=== PATIENT | female | born 1945 | race Caucasian/White ===

== ENCOUNTER 2024-11-07 17:11 | Inpatient (IN) | payer MEDICARE, SELFPAY ==
[2024-11-07] VITALS (25 sets, daily range): BP systolic 117–146; BP diastolic 60–98; PULSE 72–88; RESP 10–33; TEMP 36.4; O2SAT 87–100
--- NOTE | ~2024-11-07 | CT_ITS ---
History: Altered mental status with dizziness PROCEDURE: CT head without contrast. COMPARISON: None TECHNIQUE: Axial imaging of the head performed from the skull base to the vertex without IV contrast. Sagittal a nd coronal reformations obtained. DLP: 605 mGy-cm FINDINGS: The ventricles are age-appropriate in size, shape and position. There is no mass, mass effect or midline shift. There is no abnormal extra-axial fluid collection or intracranial hemorrhage. Visualized paranasal sinuses are clear. Partial opacification of the posterior most bilateral mastoid air cells with air-fluid level is ident ified. The remaining portions of the mastoid air cells are well aerated. No acute displaced fractures within the overlying cranium. Impression: No acute intracranial hemorrhage or suspicious mass effect. Partial opacification of the posterior most bilateral mastoid air cells with air-fluid levels. Reviewed, dictated and finalized at location A. R DRAGLINE OPERATOR Impression: No acute intracranial hemorrhage or suspicious mass effect. Partial opacification of the posterior most bilateral mastoid air cells with ai r-fluid levels.
--- NOTE | ~2024-11-07 | MR_ITS ---
EXAMINATION: MR brain/brain stem wo/w con DATE: 11/09/2024 11:28 INDICATION: Dizziness. TECHNIQUE: Magnetic resonance imaging (MRI) of the brain and brainstem was performed without and with 14 mL MultiHance intravenous contrast. COMPARISON: Head CT 11/07/2024 FINDINGS: There is an acute infarct involving left insula. There are scattered areas of nonspecific i ncreased T2-weighted signal intensity in the cerebral white matter, which is within normal limits for the patient's age. There is no intracranial hemorrhage or abnormal mass lesion. The ventricles are n ormal in size. There is mild mucosal thickening in the paranasal sinuses. IMPRESSION: 1. 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 Reviewed, dictated and finalized at location A. PROTECTOR
--- NOTE | ~2024-11-07 | XR_ITS ---
EXAMINATION: XR chest 1V portable DATE: 11/09/2024 06:15 INDICATION: Fever. TECHNIQUE: A single frontal view of the chest was obtained. COMPARISON: Chest single view 11/07/2024 FINDINGS: There is mild atelectasis at left lung base. No pleural effusion or pneumothorax. The heart size is normal. IMPRESSION: 1. Mild atelectasis at left lung base. Reviewed, dictated and finalized at location A. PATIONAL HEALTH TECHNICIAN
--- NOTE | ~2024-11-07 | XR_ITS ---
EXAMINATION: XR chest 1V portable DATE: 11/12/2024 08:41 INDICATION: Atrial fibrillation with rapid ventricular response TECHNIQUE: frontal view of the chest was obtained. COMPARISON: Chest radiograph dated 11/09/2024 FINDINGS: Mild right apical pleural-parenchymal scarring. No other airspace opacities, pulmonary edema, pleural effusion or pneumothorax. The cardiomediastinal silhouette is within normal limits isabel hernandez. IMPRESSION: 1. No acute cardiopulmonary disease. Reviewed, dictated and finalized at location A. L TENDER
--- NOTE | ~2024-11-07 | US_ITS ---
EXAMINATION: US carotid duplex BI DATE: 11/10/2024 09:16 INDICATION: Stroke TECHNIQUE: Grayscale, color Doppler, and pulsed Doppler images of the cervical carotid arteries were obtained. The degree of vessel stenosis is placed in one of the following categories: normal, <50%, 5 0-69%, >=70% but less than near-occlusion, near-occlusion, or total occlusion. Note that percent sten osis relative to normal distal artery lumen diameter is indirectly measured from velocity measurement s as described by Alvino, et al. Radiology 2003; [id number]. COMPARISON: None. FINDINGS: RIGHT: The right common carotid artery (CCA) peak systolic velocity (PSV) is 100 cm/s. The right internal ca rotid artery (ICA) PSV is 100 cm/s. The right ICA end-diastolic velocity (EDV) is 21 cm/s. The right ICA/CCA PSV ratio is 1.0. Grayscale and color Doppler images yield an estimate of <50% diameter reduc tion from plaque in the ICA. The external carotid artery (ECA) PSV is 123 cm/s. There is antegrade fl ow in the right vertebral artery. LEFT: The left CCA PSV is 118 cm/s. The left ICA PSV is 136 cm/s. The left ICA EDV is 36 cm/s. The left ICA /CCA PSV ratio is 1.2. Grayscale and color Doppler images including secondary Doppler criteria yield an estimate of <50% diameter reduction from plaque in the ICA. The ECA PSV is 97 cm/s. There is anteg rade flow in the left vertebral artery. IMPRESSION: 1. <50% stenosis from minimal plaque in the right internal carotid artery. 2. <50% stenosis from minimal plaque in the left internal carotid artery. Reviewed, dictated and finalized at location B. SCRIPT READER
--- NOTE | ~2024-11-07 | CT_ITS ---
CTA brain carotid Ordering provider: Janet Hanks MD History: . stroke . Comparison: CT done on November 07, 2024 Technique: CT angiogram head and neck was performed following timed intravenous injection of contrast . Thin slice axial images and reformatted coronal images were obtained. Three dimensional reformatted images of the brain were also obtained using a [employer] workstation. Radiation reduction technique ut ilized.The dose-length product was 1672.08 mGy-cm. 100 mL Omnipaque 350 was given IV. FINDINGS: HEAD: --ANTERIOR AND MIDDLE CEREBRAL ARTERIES AND BRANCHES: Normal caliber and contour. --INTERNAL CAROTID ARTERIES: Mild atheromatous disease but no significant stenosis. No occlusion. --BASILAR ARTERY AND BRANCHES: Normal caliber and contour. No atheromatous disease. --POSTERIOR CEREBRAL ARTERIES: Normal caliber and contour --POSTERIOR COMMUNICATING ARTERIES: Not visualized which is probably related to congenital absence or small size. --ANEURYSM: None visualized. --BRAIN: Mild brain atrophy. Old lacunar infarct in the right basal ganglia. --BONES AND SUPERFICIAL SOFT TISSUES: Normal. --PARANASAL SINUSES AND MASTOIDS: Normal. NECK: --RIGHT CERVICAL CAROTID SYSTEM: Normal caliber and contour. Percent stenosis per NASCET criteria is 0%. No carotid dissection. Otherwise, no significant atheromatous disease or stenosis of the cervica l carotid system. --LEFT CERVICAL CAROTID SYSTEM: Normal caliber and contour. Percent stenosis per NASCET criteria is 0%. No carotid dissection. Otherwise, no significant atheromatous disease or stenosis of the cervical carotid system. --VERTEBRAL ARTERIES: Normal caliber and contour. --VISUALIZED AORTIC ARCH AND BRANCHING VESSELS: Mild atheromatous disease but no significant stenosis . --SOFT TISSUES: Normal. Fibrotic changes of the lungs with minimal effusion and adjacent atelectasis seen posteriorly. --CERVICAL SPINE: Age appropriate degenerative changes. IMPRESSION: 1. Normal CTA neck. Percent stenosis per NASCET criteria is 0%. 2. No intracranial occlusion or significant stenosis seen. Reviewed, dictated and finalized at location A. LER RUNNER
--- NOTE | ~2024-11-07 | XR_ITS ---
CHEST RADIOGRAPH CLINICAL HISTORY: AMS . COMPARISON: None available TECHNIQUE: Single portable view of the chest. FINDINGS The cardiomediastinal silhouette is unremarkable. The lungs are clear. Visualized osseous structures and soft tissues are unremarkable. IMPRESSION: No focal infiltrate or effusion. Reviewed, dictated and finalized at location A. TURNER
[2024-11-07 17:22] LABS: Glucose Point of Care 65 mg/dl (65-105)
--- NOTE | 2024-11-07 18:01 | ECG_ITS ---
Test Date: 2024-11-07 21:26:26 Measurements Intervals [place] Rate: 77 P: 143 MD: 175 QRS: 19 QRSD: 89 T: 69 QT: 378 QTc: 429 Interpretive Statements SINUS RHYTHM POSSIBLE LEFT ATRIAL ENLARGEMENT [-0.1mV P-WAVE IN V1/V2] LOW QRS VOLTAGE [QRS DEFLECTION < 0.5/1.0 mV IN LIMB/CHEST LEADS] No previous ECG available for comparison Electronically Signed On 11-08-2024 13:46:48 LAYOUT MAN by Rajat Chino M.D.
--- NOTE | 2024-11-07 18:03 | ED_ITS ---
HPI - Altered Mental Status General Chief Complaint: Altered Mental Status Stated Complaint: AMS Time Seen by Provider: 11/07/24 17:37 History of Present Illness HPI narrative: 79 y/o F with a PMHx of HTN, recent dx of right breast cancer emergency department with family at bedside for altered mental status. Patient's family at bedside assists with history. States the patient drove from her house to family's house in normal condition. States while she was there she was making a salad and converse eating with family members. While in the middle the conversation the patient became acutely confused. States she would not answer questions and would stare off, then come 2 but remained confused. This lasted intermittently for about 15 minutes. Patient is normally A&O x4 but since this occurred around 4:10 p.m. the patient has not return to her baseline mental status. The patient states earlier in the day she had some lightheadedness but otherwise has been in her normal state of health. The patient states she remembers having a hot flash, nausea and felt ?tingling all over my body?. She believe she does not recall the entire event. She denies history of seizures, CVA, cardiac disease. She denies vision changes, focal numbness or weakness, headache, chest pain or shortness of breath, cough or congestion, abdominal pain, diarrhea vomiting, dysuria or hematuria. She states currently she does feels nauseous and somewhat confused. Related Data Allergies Allergy/AdvReac Type Severity Reaction Status Date / Time Penicillins Allergy Intermediate Rash Verified 11/07/24 19:32 Review of Systems 2 Review of Systems: All systems reviewed & are unremarkable except as noted in HPI and below Exam 2 Narrative: GENERAL: Well-appearing, well-nourished, and in no acute distress. HEAD: Normocephalic, atraumatic. EYES: PERRLA and EOMI. ENT: Nares clear, no rhinorrhea or epistaxis. Mucous membranes moist. Bilateral TMs are not visualized due to cerumen. Normal canals otherwise. No pain over mastoids bilaterally NECK: Supple. CHEST: Clear to auscultation. No respiratory distress. HEART: Regular rate and rhythm. No murmur heard. Normal peripheral pulses. ABDOMEN: Soft, nontender, nondistended, normal active bowel sounds. EXTREMITIES: Normal range of motion. No edema. SKIN: Warm, dry, no rash. NEURO: No focal deficits. Alert and oriented x3 - Answers all questions appropriately but states the years 2025. Cranial nerves 2-12 intact. Strength 5/5 in BUE and BLE. Sensation intact throughout. Normal [id number]. No pronator drift Course Vital Signs Vital signs: Vital Signs Temperature 97.6 F 11/07/24 17:17 Pulse Rate 81 11/07/24 17:17 Respiratory Rate 13 11/07/24 17:17 Blood Pressure 146/71 H 11/07/24 17:17 Pulse Oximetry 98 11/07/24 17:17 Temperature 97.6 F 11/07/24 17:17 Pulse Rate 78 11/07/24 22:54 Respiratory Rate 21 H 11/07/24 22:33 Blood Pressure 136/65 11/07/24 22:54 Pulse Oximetry 100 11/07/24 22:33 Oxygen Delivery Room Air 11/07/24 17:56 MDM - Altered Mental Status MDM Narrative Medical decision making narrative: 79-year-old female presents emergency department family at bedside for altered mental status since 4:10 p.m. today. See HPI for further history. Vitals are stable. Patient is A&O x3 on my evaluation, normally A&O x4 baseline. Does not follow up on exam. Normally complaints currently are confusion and nausea. She is resting comfortably in exam bed. Workup shows no leukocytosis or anemia. Chemistries are remarkable for hyponatremia of 121, no prior for comparison. May be secondary to diuretic use. TSH within normal limits. UA without infection. Lactic normal at 0.7. CT brain shows no acute intracranial hemorrhage or suspicious mass effect. There is partial opacification of the posterior most bilateral mastoid air cells with air-fluid levels. Patient has no otalgia, no pain over mastoids on exam. Chest x-ray shows no focal infiltrate or effusion. EKG shows sinus rhythm with rate of 778 ppm, normal AR interval, normal QRS duration, normal QTC, no ischemic changes. Troponin is undetectable. I was notified by nursing staff the patient was unable to ambulate on her own to go to the restroom did to lightheadedness. Orthostatic vital signs were obtained which do not show orthostatic hypotension but the patient did have lightheadedness when going from a supine to sitting position and sitting to standing position. Discussed the case with hospitalist, Dr. Queen, who agrees to admission. Advises echocardiogram and MRI of the brain in the morning. Patient family are agreeable with this. Lab Data 11/07/24 18:15 11/07/24 18:15 Labs: Lab Results 11/07/24 11/07/24 11/07/24 Range/Units 17:20 18:15 18:47 WBC 6.2 (4.5-10.0) K/mm3 RBC 3.94 L (4.2-5.4) M/mm3 Hgb 12.6 (12.0-15.0) g/dL Hct 35.4 L (37.0-47.0) % MCV 89.8 (80-100) fl MCH 32.0 (26-34) pg MCHC 35.6 (32-36) g/dl RDW 11.9 (11.5-14.5) % Plt Count 265 (150-375) k/mm3 MPV 8.7 (7.4-10.4) fl Immature Gran % (Auto) 0.8 H (0-0.5) % Neut % (Auto) 71.7 (45.5-73.1) % Lymph % (Auto) 14.5 L (18.3-44.2) % [place] % (Auto) 10.1 H (2.6-8.5) % Eos % (Auto) 1.9 (0-4.4) % Baso % (Auto) 1.0 (0.2-1.2) % Lymph # (Auto) 0.90 (0.9-3.2) K/mm3 [place] # (Auto) 0.6 (0.1-0.6) K/mm3 Eos # (Auto) 0.1 (0-0.3) K/mm3 Baso # (Auto) 0.1 (0.0-0.1) K/mm3 Abs Immat Gran (auto) 0.05 H (0.00-0.031) K/mm3 Absolute Neuts (auto) 4.5 (1.3-6.7) K/mm3 Absolute Nucleated RBC 0.000 (0.0-0.012) K/mm3 Nucleated RBC % 0.0 (0.0-0.2) % PT 13.5 (11.1-14.7) Seconds INR 1.0 APTT 27.8 (22.3-36.8) Seconds Sodium 121 L (137-145) mmol/L Potassium 3.6 (3.4-5.0) mmol/L Chloride 87 L (98-107) mmol/L Carbon Dioxide 28 (22-30) mmol/L Anion Gap 6 (4-12) mmol/L BUN 14 (7-17) mg/dL Creatinine 0.60 L (0.7-1.0) mg/dL Estim Creat Clear Calc 64 ml/min Estimated GFR > 60 (59 - ) Glucose 90 (65-110) mg/dL POC Capillary Glucose 65 (65-105) mg/dl Lactic Acid 0.7 (0.7-2.0) mmol/L Calcium 9.3 (8.4-10.2) mg/dL Total Bilirubin 0.9 (0.2-1.3) mg/dL AST 33 (14-36) U/L ALT 25 (6-35) U/L Alkaline Phosphatase 59 (38-126) U/L Total Creatine Kinase 33 (30-135) U/L Troponin I < 0.012 (0.000-0.034) ng/mL Total Protein 7.0 (6.3-8.2) g/dL Albumin 4.7 (3.5-5.1) g/dL TSH 1.620 (0.465-4.680) uIU/mL Urine Color Yellow (Yellow) Urine Appearance Clear (Clear) Urine pH 6.5 (5.0-9.0) Ur Specific [place] 1.016 (1.001-1.035) Urine Protein Negative (Negative) mg/dL Urine Glucose (UA) Negative (Negative) mg/dL Urine Ketones 1+ H (Negative) mg/dL Ur Blood (Man) Negative (Negative) Urine Nitrate Negative (Negative) Urine Bilirubin Negative (Negative) Urine Urobilinogen 0.2 (<2.0) mg/dL Leukocyte Esterase Rfl Negative (Negative) TATUM/UL 11/07/24 Range/Units 23:16 WBC (4.5-10.0) K/mm3 RBC (4.2-5.4) M/mm3 Hgb (12.0-15.0) g/dL Hct (37.0-47.0) % MCV (80-100) fl MCH (26-34) pg MCHC (32-36) g/dl RDW (11.5-14.5) % Plt Count (150-375) k/mm3 MPV (7.4-10.4) fl Immature Gran % (Auto) (0-0.5) % Neut % (Auto) (45.5-73.1) % Lymph % (Auto) (18.3-44.2) % [place] % (Auto) (2.6-8.5) % Eos % (Auto) (0-4.4) % Baso % (Auto) (0.2-1.2) % Lymph # (Auto) (0.9-3.2) K/mm3 [place] # (Auto) (0.1-0.6) K/mm3 Eos # (Auto) (0-0.3) K/mm3 Baso # (Auto) (0.0-0.1) K/mm3 Abs Immat Gran (auto) (0.00-0.031) K/mm3 Absolute Neuts (auto) (1.3-6.7) K/mm3 Absolute Nucleated RBC (0.0-0.012) K/mm3 Nucleated RBC % (0.0-0.2) % PT (11.1-14.7) Seconds INR APTT (22.3-36.8) Seconds Sodium (137-145) mmol/L Potassium (3.4-5.0) mmol/L Chloride (98-107) mmol/L Carbon Dioxide (22-30) mmol/L Anion Gap (4-12) mmol/L BUN (7-17) mg/dL Creatinine (0.7-1.0) mg/dL Estim Creat Clear Calc ml/min Estimated GFR (59 - ) Glucose (65-110) mg/dL POC Capillary Glucose 66 (65-105) mg/dl Lactic Acid (0.7-2.0) mmol/L Calcium (8.4-10.2) mg/dL Total Bilirubin (0.2-1.3) mg/dL AST (14-36) U/L ALT (6-35) U/L Alkaline Phosphatase (38-126) U/L Total Creatine Kinase (30-135) U/L Troponin I (0.000-0.034) ng/mL Total Protein (6.3-8.2) g/dL Albumin (3.5-5.1) g/dL TSH (0.465-4.680) uIU/mL Urine Color (Yellow) Urine Appearance (Clear) Urine pH (5.0-9.0) Ur Specific [place] (1.001-1.035) Urine Protein (Negative) mg/dL Urine Glucose (UA) (Negative) mg/dL Urine Ketones (Negative) mg/dL Ur Blood (Man) (Negative) Urine Nitrate (Negative) Urine Bilirubin (Negative) Urine Urobilinogen (<2.0) mg/dL Leukocyte Esterase Rfl (Negative) TATUM/UL Discharge Plan Discharge Clinical Impression: Lightheadedness, Hyponatremia Patient Disposition: Still a Patient Condition: Stable Patient Language: [place] Follow-up/Referrals: Karishma Regan [Other]
[2024-11-07 18:23] LABS: Basophils Absolute Auto 0.1 K/mm3 (0.0-0.1); Eosinophils Absolute Auto 0.1 K/mm3 (0-0.3); Eosinophils Percent Auto 1.9 % (0-4.4); Hematocrit 35.4 % (37.0-47.0); Hemoglobin 12.6 g/dL (12.0-15.0); Immature Granulocyte Absolute 0.05 K/mm3 (0.00-0.031); Immature Granulocyte Percent A 0.8 % (0-0.5); Lymphocytes Percent Auto 14.5 % (18.3-44.2); Mean Corpuscular HGB Conc 35.6 g/dl (32-36); Mean Corpuscular Volume 89.8 fl (80-100); Mean Platelet Volume 8.7 fl (7.4-10.4); Monocytes Absolute Auto 0.6 K/mm3 (0.1-0.6); Monocytes Percent Auto 10.1 % (2.6-8.5); Neutrophils Absolute Auto 4.5 K/mm3 (1.3-6.7); Neutrophils Percent Auto 71.7 % (45.5-73.1); Platelet Count Result 265 k/mm3 (150-375); Red Blood Count 3.94 M/mm3 (4.2-5.4); Red Cell Distribution Width 11.9 % (11.5-14.5); White Blood Count 6.2 K/mm3 (4.5-10.0)
[2024-11-07 18:34] LABS: Alanine Aminotransferase 25 U/L (6-35); Albumin Level 4.7 g/dL (3.5-5.1); Alkaline Phosphatase 59 U/L (38-126); Anion Gap 6 mmol/L (4-12); Aspartate Amino Transferase 33 U/L (14-36); Bilirubin,Total 0.9 mg/dL (0.2-1.3); Blood Urea Nitrogen 14 mg/dL (7-17); Calcium 9.3 mg/dL (8.4-10.2); Carbon Dioxide 28 mmol/L (22-30); Chloride 87 mmol/L (98-107); Creatine Kinase 33 U/L (30-135); Estimated CRCL calculation 64 ml/min; Estimated Glomerular Filt Rate > 60; Glucose 90 mg/dL (65-110); Lactic Acid Reflex 0.7 mmol/L (0.7-2.0); Potassium 3.6 mmol/L (3.4-5.0); Sodium 121 mmol/L (137-145)
[2024-11-07 18:35] LABS: Partial Thromboplastin Time 27.8 Seconds (22.3-36.8); Prothrombin Time 13.5 Seconds (11.1-14.7)
[2024-11-07 18:45] LABS: Troponin I < 0.012 ng/mL (0.000-0.034)
[2024-11-07] MEDS: ACETAMINOPHEN 325 MG TABLET 650 MG PO (19:31)
[2024-11-07 19:47] LABS: Add Urine Microscopic? NO; Appearance Urine Clear (Clear); Bilirubin Urine Negative (Negative); Blood Urine Negative (Negative); Color Urine Yellow (Yellow); Glucose Urine UA Negative (Negative); Ketones Urine 1+ mg/dL (Negative); Leukocyte Esterase Ur Negative LEU/UL (Negative); Nitrate Urine Negative (Negative); Protein Urine Negative (Negative); Specific Grav Ur 1.016 (1.001-1.035); Urobilinogen Urine 0.2 mg/dL (<2.0); pH Urine 6.5 (5.0-9.0)
[2024-11-07] MEDS: SODIUM CHLORIDE 0.9% IV 1,000 ML 999 ML IV CONT ×2 (20:15→23:34)
[2024-11-07] MEDS: METOCLOPRAMIDE HCL INJ 10 MG/2 ML VIAL IV PUSH (23:01)
[2024-11-07] MEDS: diphenhydrAMINE HCl INJ 50 MG/ML VIAL 25 MG IV PUSH (23:01)
[2024-11-07 23:19] LABS: Glucose Point of Care 66 mg/dl (65-105)
--- NOTE | 2024-11-07 23:23 | PM.IMHP ---
H&P: HPI History of Present Illness Date/Time: 11/07/24 23:23 Chief Complaint: Altered mental status Narrative: This is a 79-year-old female with past medical history significant for hypertension, recently diagnosed breast CA, hypothyroidism, depression. Patient was brought to the emergency room after having episode of altered consciousness with the patient became unresponsive and was noticed to have lip smacking and bilateral upper extremity nonpurposeful finger movement. Patient did not have incontinence, was recently diagnosed with breast CA and had been on estrogen replacement therapy which was stopped has had hot flashes with profuse sweating and insomnia for several days. Patient was found to be mildly orthostatic and felt dizzy upon standing. Preliminary workup was significant for sodium [address] of the head showed no acute hemorrhage. Patient has been placed in observation for further evaluation management and treatment CHEST RADIOGRAPH CLINICAL HISTORY: AMS . COMPARISON: None available TECHNIQUE: Single portable view of the chest. FINDINGS The cardiomediastinal silhouette is unremarkable. The lungs are clear. Visualized osseous structures and soft tissues are unremarkable. IMPRESSION: No focal infiltrate or effusion. PROCEDURE: CT head without contrast. COMPARISON: None TECHNIQUE: Axial imaging of the head performed from the skull base to the vertex without IV contrast. Sagittal and coronal reformations obtained. DLP: 605 mGy-cm FINDINGS: The ventricles are age-appropriate in size, shape and position. There is no mass, mass effect or midline shift. There is no abnormal extra-axial fluid collection or intracranial hemorrhage. Visualized paranasal sinuses are clear. Partial opacification of the posterior most bilateral mastoid air cells with air-fluid level is identified. The remaining portions of the mastoid air cells are well aerated. No acute displaced fractures within the overlying cranium. Impression: No acute intracranial hemorrhage or suspicious mass effect. Partial opacification of the posterior most bilateral mastoid air cells with air-fluid levels. Review of Systems Review of Systems: Patient has no recollection of events however states that has a headache, has been having hot flashes and profuse diaphoresis, has not been able to sleep in several days [facility] Social History Social History Smoking status: Never smoker Second hand tobacco smoke exposure: No Alcohol intake: current Drinks per week: 7 Substance use: never Do You Feel Safe in your Home?: Yes Lack of Transportation: No Lack of Food: Never True Current Housing: I Have Housing Concerned About Future Housing: No Difficulty Paying Gas/Electric Bills: No Difficulty Paying for Meds: No Currently Unemployed: No Education: High School Diploma/GED Difficulty w/ Childcare or Family Care: No Spiritual care concerns: No Meds Home Medications and Allergies Home Medications ?Medication ?Instructions ?Recorded ?Confirmed ?Type levothyroxine 100 mcg tablet 100 mcg PO DAILY 11/08/24 11/08/24 History metoprolol succinate 50 mg 50 mg PO DAILY 11/08/24 11/08/24 History tablet,extended release 24 hr olmesartan 5 mg tablet 5 mg PO DAILY 11/08/24 11/08/24 History triamterene 37.5 1 cap PO DAILY 11/08/24 11/08/24 History mg-hydrochlorothiazide 25 mg capsule venlafaxine 37.5 mg 37.5 mg PO DAILY 11/08/24 11/08/24 History capsule,extended release 24 hr vitamin E 268 mg (400 unit) capsule 268 mg PO DAILY 11/08/24 11/08/24 History Allergies Allergy/AdvReac Type Severity Reaction Status Date / Time Penicillins Allergy Intermediate Rash Verified 11/07/24 19:32 Vital Signs Vital Signs - 24 hr 11/07/24 17:17 11/07/24 17:24 11/07/24 17:30 Temperature 97.6 F Pulse Rate 81 83 81 Respiratory Rate 13 16 28 H Blood Pressure 146/71 H Pulse Oximetry 98 98 100 Oxygen Delivery 11/07/24 17:32 11/07/24 17:45 11/07/24 17:56 Temperature Pulse Rate 82 79 Respiratory Rate 19 16 Blood Pressure 144/67 H Pulse Oximetry 97 87 L Oxygen Delivery Room Air 11/07/24 19:46 11/07/24 19:47 11/07/24 20:00 Temperature Pulse Rate 80 80 77 Respiratory Rate 10 L 12 17 Blood Pressure 133/65 Pulse Oximetry 100 100 99 Oxygen Delivery 11/07/24 20:01 11/07/24 20:15 11/07/24 20:16 Temperature Pulse Rate 79 77 79 Respiratory Rate 19 19 16 Blood Pressure 137/62 117/98 H Pulse Oximetry 99 95 98 Oxygen Delivery 11/07/24 20:35 11/07/24 20:45 12/24/24 21:00 Temperature Pulse Rate 82 78 79 Respiratory Rate 24 H 26 H 22 H Blood Pressure Pulse Oximetry Oxygen Delivery 11/07/24 21:01 11/07/24 21:28 11/07/24 21:30 Temperature Pulse Rate 78 72 75 Respiratory Rate 17 18 33 H Blood Pressure 124/73 Pulse Oximetry Oxygen Delivery 11/07/24 21:31 11/07/24 21:32 11/07/24 21:45 Temperature Pulse Rate 74 72 73 Respiratory Rate 21 H 17 30 H Blood Pressure 146/64 H Pulse Oximetry Oxygen Delivery 11/07/24 21:46 11/07/24 22:33 11/07/24 22:52 Temperature Pulse Rate 77 78 87 Respiratory Rate 21 H 21 H Blood Pressure 141/60 H 125/70 Pulse Oximetry 100 Oxygen Delivery 11/07/24 22:53 11/07/24 22:54 Temperature Pulse Rate 88 78 Respiratory Rate Blood Pressure 127/69 136/65 Pulse Oximetry Oxygen Delivery Exam Narrative: Patient laying in a stretcher Const: General: comfortable, no acute distress, well developed, alert, awake and average body habitus Nutritional Appearance: average body habitus Orientation/consciousness: patient oriented x3 HENMT: Head: normal to inspection, normocephalic and atraumatic Ears: hearing grossly normal bilaterally Face/Nose/Sinus: normal facial exam Face and sinus: normal facial exam Eyes: General: appearance normal, both eyes and all related structures Pupils: Equal, round and reactive pupils present EOM: EOMs intact bilaterally Neck: Neck: full ROM, no lymphadenopathy and no JVD Thyroid: thyroid normal Lymphatic: no lymphadenopathy noted Resp: Effort & Inspection: normal respiratory effort and able to speak in complete sentences Auscultation: clear to auscultation bilaterally Cardio: Jugular venous distension: no JVD Rate: regular rate Rhythm: regular rhythm Heart sounds: S1 normal heart sound present and S2 normal heart sound present GI: GI Palp: Yes Soft to palpation and Yes No hepatosplenomegaly present : General: Yes deferred Skin: Rashes: no rashes Wounds: no wounds Neuro: General: patient oriented x3 and CN's II-XI intact bilaterally Cranial nerves: Yes CN's II-XII intact bilaterally and Yes Equal, round and reactive pupils present Cognition (Neuro): normal cognition Speech: normal speech Gait exam (Neuro): Unable to assess gait Motor exam (neuro): 5/5 motor strength present throughout Extrem: General: normal to inspection, full ROM, no joint enlargement and no pedal edema H&P: Results Labs Labs: Short CBC 11/07/24 Range/Units 18:15 WBC 6.2 (4.5-10.0) K/mm3 Hgb 12.6 (12.0-15.0) g/dL Hct 35.4 L (37.0-47.0) % Plt Count 265 (150-375) k/mm3 BMP 11/07/24 18:15 Sodium 121 L Potassium 3.6 Chloride 87 L Carbon Dioxide 28 BUN 14 Creatinine 0.60 L Glucose 90 Calcium 9.3 Cardiac Enzymes 11/07/24 Range/Units 18:15 Total Creatine Kinase 33 (30-135) U/L Troponin I < 0.012 (0.000-0.034) ng/mL Liver Function 11/07/24 Range/Units 18:15 Total Bilirubin 0.9 (0.2-1.3) mg/dL AST 33 (14-36) U/L ALT 25 (6-35) U/L Alkaline Phosphatase 59 (38-126) U/L Albumin 4.7 (3.5-5.1) g/dL Urine 11/07/24 Range/Units 18:47 Urine Color Yellow (Yellow) Urine Appearance Clear (Clear) Urine pH 6.5 (5.0-9.0) Ur Specific [place] 1.016 (1.001-1.035) Urine Protein Negative (Negative) mg/dL Urine Glucose (UA) Negative (Negative) mg/dL Assessment and Plan Assessment and plan (1) Postural dizziness with near syncope: Code(s): R42 - Dizziness and giddiness; R55 - Syncope and collapse Status: Acute Assessment and Plan: Placed in observation MRI of the brain in the morning Echocardiogram in a.m. (2) Observed seizure-like activity: Code(s): R56.9 - Unspecified convulsions Status: Acute Assessment and Plan: Neurology consult (3) Hyponatremia: Code(s): E87.1 - Hypo-osmolality and hyponatremia Status: Acute Assessment and Plan: Will hold diuretics Patient takes triamterene and hydrochlorothiazide (4) Breast CA: Code(s): C50.919 - Malignant neoplasm of unspecified site of unspecified female breast Status: Acute Assessment and Plan: Follow-up in outpatient setting Hospitalist YAW Advance Care Plan I have confirmed that the patient's Advanced Care Plan is present, code status is documented, or surrogate decision maker is listed in patient medical record.: Yes Medication Reconciliation I have utilized all available resources to obtain, update and review the patients current medications (includes all prescriptions, OTC, herbals, cannabis, and nutritional supplements).: Yes
[2024-11-07 23:48] LABS: Sodium Urine Random 134 meq/L
[2024-11-07 23:50] LABS: NT Pro B Type Natriuretic Pept 130 pg/mL (19.9-100)
[2024-11-08] VITALS (11 sets, daily range): BP systolic 107–139; BP diastolic 45–83; PULSE 74–108; RESP 18; TEMP 36.2–37.9; O2SAT 97–100; BMI 25.6
--- NOTE | 2024-11-08 00:33 | ADMGEN ---
This patient, Arleen Pettit, was admitted to -. Patient/family oriented to hospital policies and general routines including ID bracelet, bed and alarms, visiting hours, pain management, procedures, bathroom and other care routines, personal items, smoking policy, room service/diet, and visiting hours. Information on how to activate the Rapid Response Team has been discussed. Patient/Family are encouraged to report perceived risks to care and to ask questions if they do not understand what they are told or what they should do.
[2024-11-08] MEDS: traZODone HCL 50 MG TABLET PO (02:12)
[2024-11-08] MEDS: LEVOTHYROXINE SODIUM 100 MCG TABLET PO (05:54)
--- NOTE | 2024-11-08 06:00 | ECHO_ITS ---
Patient Info Name: Arleen Pettit Age: 79 years : 1945 Gender: Female Ht: 61 in Wt: 143 lbs BSA: 1.69 m2 HR: 80 bpm BP: 139 / 60 mmHg Heart Rhythm: Sinus Rhythm Technical Quality: Good Exam Date: 11/08/2024 2:18 PM Site Location: [facility] Exam Location: Echo Lab Patient Status: Inpatient Admit Date: 11/07/2024 Staff Ordering Physician: Neela Kaur PA-C Hospice Care Transitions Coordinator: Pamela Rodgers RDCS Attending Provider: Hola Queen MD Referring Physician: Vincent GLASS; Exam Type: CA echo doppler color flow Study Info Complete two-dimensional, color flow and Doppler transthoracic echocardiogram is performed. Summary 1. Complete two-dimensional, color flow and Doppler transthoracic echocardiogram is performed. 2. Left ventricular systolic function is normal, estimated at 60-65%. 3. The left ventricular diastolic function is grade I diastolic dysfunction. 4. There is trace tricuspid valve regurgitation. 5. No pulmonary hypertension, estimated pulmonary arterial systolic pressure is 27 mmHg. Left Ventricle Left ventricular chamber dimension is normal. Left ventricular systolic function is normal, estimated at 60-65%. There is no increased left ventricular wall thickness. Left ventricular septal wall motion is normal. The left ventricular diastolic function is grade I diastolic dysfunction. Right Ventricle Right ventricular chamber dimension is normal. Right ventricular systolic function is normal. Left Atria Left atrial chamber dimension is normal. Right Atria Right atrial chamber dimension is normal. Atrial Septum Intact interatrial septum visualized by color flow imaging. Aortic Valve The aortic valve is trileaflet. There is no aortic valve sclerosis. There is no aortic valve stenosis. There is no aortic valve regurgitation. Pulmonic Valve The pulmonic valve is normal. There is no pulmonic valve stenosis. There is no pulmonic regurgitation. Mitral Valve The mitral valve has normal leaflets. There is no mitral valve stenosis. There is no mitral valve regurgitation. Tricuspid Valve The tricuspid valve leaflets are normal. There is no significant tricuspid valve stenosis. There is trace tricuspid valve regurgitation. No pulmonary hypertension, estimated pulmonary arterial systolic pressure is 27 mmHg. Pericardium/Pleural The pericardium appears normal. There is no pericardial effusion. Inferior Vena Cava Normal inferior vena cava with >50% collapse upon inspiration consistent with Empty right atrial pressure, 5 mmHg. Aorta The aortic root size at the sinus of Valsalva is normal. The prox ascending aorta size is normal. Left Ventricular Outflow Tract Name Value Normal LVOT 2D LVOT Diameter 1.9 cm LVOT Doppler LVOT Peak Gradient 5 mmHg LVOT Mean Gradient 3 mmHg LVOT VTI 21 cm LVOT VTI/AV VTI Ratio 0.8 LVOT Stroke Volume 60 ml LVOT CO 5.2 l/min LVOT CI 3.1 l/min/m2 Pulmonic Valve Name Value Normal PV Doppler PV Peak Gradient 3 mmHg Mitral Valve Name Value Normal MV Doppler MV Peak Gradient 4 mmHg MV Mean Gradient 1 mmHg MV Decel Rains 244 cm/s2 MV PHT 76 ms MV Area (PHT) 2.9 cm2 4.0-5.0 MV Area (Cont Eq VTI) 2.4 cm2 MV Diastolic Function MV E Peak Velocity 64 cm/s MV A Peak Velocity 95 cm/s MV E/A 0.7 MV Decel Time 262 ms MV Annular TDI MV E/e' (Septal) 9.4 <=8.0 MV E/e' (Lateral) 8.5 <=8.0 MV E/e' (Average) 8.9 Tricuspid Valve Name Value Normal TV Regurgitation Doppler TR Peak Velocity 236 cm/s TR Peak Gradient 22 mmHg Estimated PAP/RSVP RA Pressure 5 mmHg <=5 PA Systolic Pressure 27 mmHg <36 RV Systolic Pressure 27 mmHg <36 Aortic Valve Name Value Normal AV Doppler AV Peak Velocity 131 cm/s AV Peak Gradient 7 mmHg AV Mean Gradient 4 mmHg AV VTI 24 cm AV Area (Cont Eq VTI) 2.5 cm2 >=3.0 AV Area (Cont Eq Obi) 2.6 cm2 AV Regurgitation 2D LVOT Area 2.9 cm2 Ventricles Name Value Normal LV Dimensions 2D/MM IVS Diastolic Thickness (2D) 0.7 cm 0.6-1.0 LVID Diastole (2D) 5.1 cm 3.8-5.2 LVIW Diastolic Thickness (2D) 0.7 cm 0.6-0.9 LVID Systole (2D) 3.7 cm 2.2-3.5 LVOT Diameter 1.9 cm LV Mass (2D Cubed) 123.98 g 67.00-162.00 LV Mass Index (2D Cubed) 73 g/m2 43-95 Relative Wall Thickness (2D) 0.29 LV Fractional Shortening/Ejection Fraction 2D/MM LV Fractional Shortening (2D) 29 % 27-45 LV EF (2D Teicholz) 55 % 54-74 LV Diastolic Volume (4C MOD) 85 ml LV EF (4C MOD) 58 % LV Diastolic Volume (2C MOD) 79 ml LV EF (2C MOD) 43 % LV Diastolic Volume (BP MOD) 82 ml 46-106 LV Diastolic Volume Index (BP MOD) 49 ml/m2 29-61 LV Systolic Volume (BP MOD) 40 ml 14-42 LV Systolic Volume Index (BP MOD) 23 ml/m2 8-24 LV EF (BP MOD) 52 % 54-74 LV Diastolic Length (4C) 7.6 cm LV Systolic Length (4C) 6.8 cm LV Stroke Volume (4C MOD) 49 ml LV CO (BP MOD) 3.7 l/min LV CI (BP MOD) 2.2 l/min/m2 Atria Name Value Normal LA Dimensions LA Volume (4C A-L) 37 ml LA Volume (BP A-L) 40 ml RA Dimensions RA Area (4C) 10.8 cm2 <=18.0 Report Signatures
[2024-11-08 08:47] LABS: Anion Gap 5 mmol/L (4-12); Blood Urea Nitrogen 9 mg/dL (7-17); Carbon Dioxide 23 mmol/L (22-30); Chloride 95 mmol/L (98-107); Estimated CRCL calculation 59 ml/min; Estimated Glomerular Filt Rate > 60; Glucose 90 mg/dL (65-110); Potassium 3.3 mmol/L (3.4-5.0); Sodium 123 mmol/L (137-145)
--- NOTE | 2024-11-08 11:29 | PM.IMPN ---
Progress Note: A&P Assessment and Plan (1) Postural dizziness with near syncope: Code(s): R42 - Dizziness and giddiness; R55 - Syncope and collapse Status: Acute Assessment and Plan: Likely from Hyponatremia r/o stroke MRI and ECHO pending patient alert and oriented x 3 this morning Neurology consulted (2) Observed seizure-like activity: Code(s): R56.9 - Unspecified convulsions Status: Acute Assessment and Plan: ?from Hyponatremia continue above workup and neurology consulted (3) Hyponatremia: Code(s): E87.1 - Hypo-osmolality and hyponatremia Status: Acute Assessment and Plan: Triamterene and hydrochlorothiazide on hold (4) Breast CA: Code(s): C50.919 - Malignant neoplasm of unspecified site of unspecified female breast Status: Acute Assessment and Plan: Follow-up in outpatient setting Plan DVT prophylaxis on Lovenox Subjective Date/time seen: 11/08/24 11:29 Interval history: Comfortable at bedside na is improving MRI brain and ECHO pending Review of Systems Review of Systems: Patient has no recollection of events however states that has a headache, has been having hot flashes and profuse diaphoresis, has not been able to sleep in several days Exam Narrative: Patient laying in a stretcher Const: General: comfortable, no acute distress, well developed, alert, awake and average body habitus Nutritional Appearance: average body habitus Orientation/consciousness: patient oriented x3 HENMT: Head: normal to inspection, normocephalic and atraumatic Ears: hearing grossly normal bilaterally Face/Nose/Sinus: normal facial exam Face and sinus: normal facial exam Eyes: General: appearance normal, both eyes and all related structures Pupils: Equal, round and reactive pupils present EOM: EOMs intact bilaterally Neck: Neck: full ROM, no lymphadenopathy and no JVD Thyroid: thyroid normal Lymphatic: no lymphadenopathy noted Resp: Effort & Inspection: normal respiratory effort and able to speak in complete sentences Auscultation: clear to auscultation bilaterally Cardio: Jugular venous distension: no JVD Rate: regular rate Rhythm: regular rhythm Heart sounds: S1 normal heart sound present and S2 normal heart sound present : General: Yes deferred Skin: Rashes: no rashes Wounds: no wounds Neuro: General: patient oriented x3, CN's II-XI intact bilaterally and Unable to assess gait Cranial nerves: Yes CN's II-XII intact bilaterally and Yes Equal, round and reactive pupils present Cognition (Neuro): normal cognition Speech: normal speech Gait exam (Neuro): Unable to assess gait Motor exam (neuro): 5/5 motor strength present throughout Extrem: General: normal to inspection, full ROM, no joint enlargement and no pedal edema Objective Data Vital Signs Vital Signs: Vital Signs - 24 hr 11/07/24 17:17 11/07/24 17:24 11/07/24 17:30 Temperature 97.6 F Pulse Rate 81 83 81 Respiratory Rate 13 16 28 H Blood Pressure 146/71 H Pulse Oximetry 98 98 100 Oxygen Delivery 11/07/24 17:32 11/07/24 17:45 11/07/24 17:56 Temperature Pulse Rate 82 79 Respiratory Rate 19 16 Blood Pressure 144/67 H Pulse Oximetry 97 87 L Oxygen Delivery Room Air 11/07/24 19:46 11/07/24 19:47 11/07/24 20:00 Temperature Pulse Rate 80 80 77 Respiratory Rate 10 L 12 17 Blood Pressure 133/65 Pulse Oximetry 100 100 99 Oxygen Delivery 11/07/24 20:01 11/07/24 20:15 11/07/24 20:16 Temperature Pulse Rate 79 77 79 Respiratory Rate 19 19 16 Blood Pressure 137/62 117/98 H Pulse Oximetry 99 95 98 Oxygen Delivery 11/07/24 20:35 11/07/24 20:45 11/07/24 21:00 Temperature Pulse Rate 82 78 79 Respiratory Rate 24 H 26 H 22 H Blood Pressure Pulse Oximetry Oxygen Delivery 11/07/24 21:01 11/07/24 21:28 11/07/24 21:30 Temperature Pulse Rate 78 72 75 Respiratory Rate 17 18 33 H Blood Pressure 124/73 Pulse Oximetry Oxygen Delivery 11/07/24 21:31 11/07/24 21:32 11/07/24 21:45 Temperature Pulse Rate 74 72 73 Respiratory Rate 21 H 17 30 H Blood Pressure 146/64 H Pulse Oximetry Oxygen Delivery 11/07/24 21:46 11/07/24 22:33 11/07/24 22:52 Temperature Pulse Rate 77 78 87 Respiratory Rate 21 H 21 H Blood Pressure 141/60 H 125/70 Pulse Oximetry 100 Oxygen Delivery 11/07/24 22:53 11/07/24 22:54 11/08/24 00:35 Temperature 97.1 F L Pulse Rate 88 78 74 Respiratory Rate 18 Blood Pressure 127/69 136/65 131/83 Pulse Oximetry 100 Oxygen Delivery 11/08/24 02:26 11/08/24 05:31 Temperature 98.3 F Pulse Rate 80 Respiratory Rate 18 Blood Pressure 139/60 Pulse Oximetry 97 Oxygen Delivery Room Air Intake/Output Intake/Output: Intake & Output 11/05/24 11/06/24 11/07/24 11/08/24 23:59 23:59 23:59 23:59 Intake Total 1000 1148 Balance 1000 1148 Meds/Results Medications: Active Medications Generic Name Dose Route Start Last Admin Trade Name Freq PRN Reason Stop Dose Admin Acetaminophen 1,000 mg 11/08/24 05:38 Acetaminophen 500 Mg Tablet PO Q6H PRN Mild Pain (1-3) or Fever Al Hydrox/Mg Hydrox/Simethicone 30 ml 11/08/24 05:38 Mag Hydrox/Al Hydrox/Simeth 30 Ml Udc PO Q6H PRN Indigestion Levothyroxine Sodium 100 mcg 11/08/24 06:30 11/08/24 05:54 Levothyroxine Sodium 100 Mcg Tablet PO 100 mcg DAILY@0630 JESSICA Administration Perflutren Lipid Microsphere 0 ml 11/07/24 23:23 Perflutren Lipid Microspheres 1.5 Ml Vial Diluted To 10 Ml Total Volume IV PUSH 11/10/24 23:24 ONCE PRN adequate visualization Protocol Polyethylene Glycol 17 gm 11/08/24 05:38 Polyethylene Glycol 3350 17 Gm Powd.Pack PO QAM PRN Constipation Radiology Results: ITS Impressions Chest X-Ray 11/07/24 20:04 IMPRESSION: No focal infiltrate or effusion. Head CT 11/07/24 20:13 Impression: No acute intracranial hemorrhage or suspicious mass effect. Partial opacification of the posterior most bilateral mastoid air cells with air-fluid levels. Labs Labs: Laboratory Results - last 24 hr 11/07/24 11/07/24 11/07/24 17:20 18:15 18:47 WBC 6.2 RBC 3.94 L Hgb 12.6 Hct 35.4 L MCV 89.8 MCH 32.0 MCHC 35.6 RDW 11.9 Plt Count 265 MPV 8.7 Immature Gran % (Auto) 0.8 H Neut % (Auto) 71.7 Lymph % (Auto) 14.5 L [place] % (Auto) 10.1 H Eos % (Auto) 1.9 Baso % (Auto) 1.0 Lymph # (Auto) 0.90 [place] # (Auto) 0.6 Eos # (Auto) 0.1 Baso # (Auto) 0.1 Abs Immat Gran (auto) 0.05 H Absolute Neuts (auto) 4.5 Absolute Nucleated RBC 0.000 Nucleated RBC % 0.0 PT 13.5 INR 1.0 APTT 27.8 Sodium 121 L Potassium 3.6 Chloride 87 L Carbon Dioxide 28 Anion Gap 6 BUN 14 Creatinine 0.60 L Estim Creat Clear Calc 64 Estimated GFR > 60 Glucose 90 POC Capillary Glucose 65 Lactic Acid 0.7 Calcium 9.3 Total Bilirubin 0.9 AST 33 ALT 25 Alkaline Phosphatase 59 Total Creatine Kinase 33 Troponin I < 0.012 NT-Pro-B Natriuret Pep 130 H Total Protein 7.0 Albumin 4.7 TSH 1.620 Urine Color Yellow Urine Appearance Clear Urine pH 6.5 Ur Specific [place] 1.016 Urine Protein Negative Urine Glucose (UA) Negative Urine Ketones 1+ H Ur Blood (Man) Negative Urine Nitrate Negative Urine Bilirubin Negative Urine Urobilinogen 0.2 Leukocyte Esterase Rfl Negative Ur Random Sodium 134 11/07/24 11/08/24 23:16 08:28 WBC RBC Hgb Hct MCV MCH MCHC RDW Plt Count MPV Immature Gran % (Auto) Neut % (Auto) Lymph % (Auto) [place] % (Auto) Eos % (Auto) Baso % (Auto) Lymph # (Auto) [place] # (Auto) Eos # (Auto) Baso # (Auto) Abs Immat Gran (auto) Absolute Neuts (auto) Absolute Nucleated RBC Nucleated RBC % PT INR APTT Sodium 123 L Potassium 3.3 L Chloride 95 L Carbon Dioxide 23 Anion Gap 5 BUN 9 D Creatinine 0.60 L Estim Creat Clear Calc 59 Estimated GFR > 60 Glucose 90 POC Capillary Glucose 66 Lactic Acid Calcium 8.0 L Total Bilirubin AST ALT Alkaline Phosphatase Total Creatine Kinase Troponin I NT-Pro-B Natriuret Pep Total Protein Albumin TSH Urine Color Urine Appearance Urine pH Ur Specific [place] Urine Protein Urine Glucose (UA) Urine Ketones Ur Blood (Man) Urine Nitrate Urine Bilirubin Urine Urobilinogen Leukocyte Esterase Rfl Ur Random Sodium
--- NOTE | 2024-11-08 13:25 | PC.NURSE ---
This VICE PRESIDENT OF RECRUITING notified Dr. Hanks at 1323 of pt Na level 121. No new orders received.
[2024-11-08] MEDS: ENOXAPARIN 40 MG/0.4 ML SYRINGE SUB-Q (14:08)
[2024-11-08] MEDS: ACETAMINOPHEN 500 MG TABLET 1000 MG PO (14:14)
--- NOTE | 2024-11-08 18:47 | PC.NURSE ---
On 11/08/24, the PLATE SHOP HELPER, [ Chandrika Nair], provided care and completed [facility] documentation on this patient. I have reviewed the PLATE SHOP HELPER's documentation and agree with the findings.
[2024-11-09] VITALS (11 sets, daily range): BP systolic 124–142; BP diastolic 48–62; PULSE 88–115; RESP 16–20; TEMP 36.6–38.6; O2SAT 93–95
[2024-11-09] MEDS: ACETAMINOPHEN 500 MG TABLET 1000 MG PO ×2 (05:23→20:56)
[2024-11-09] MEDS: LEVOTHYROXINE SODIUM 100 MCG TABLET PO (05:23)
[2024-11-09 06:28] LABS: Basophils Absolute Auto 0.1 K/mm3 (0.0-0.1); Basophils Percent Auto 0.9 % (0.2-1.2); Eosinophils Percent Auto 0.3 % (0-4.4); Hematocrit 35.9 % (37.0-47.0); Hemoglobin 12.7 g/dL (12.0-15.0); Immature Granulocyte Absolute 0.06 K/mm3 (0.00-0.031); Lymphocytes Absolute Auto 1.07 K/mm3 (0.9-3.2); Lymphocytes Percent Auto 18.7 % (18.3-44.2); Mean Corpuscular HGB Conc 35.4 g/dl (32-36); Mean Corpuscular Hemoglobin 32.4 pg (26-34); Mean Corpuscular Volume 91.6 fl (80-100); Mean Platelet Volume 8.7 fl (7.4-10.4); Monocytes Absolute Auto 0.9 K/mm3 (0.1-0.6); Monocytes Percent Auto 16.1 % (2.6-8.5); Neutrophils Absolute Auto 3.6 K/mm3 (1.3-6.7); Platelet Count Result 220 k/mm3 (150-375); Red Blood Count 3.92 M/mm3 (4.2-5.4); Red Cell Distribution Width 12.2 % (11.5-14.5); White Blood Count 5.7 K/mm3 (4.5-10.0)
[2024-11-09 06:38] LABS: Anion Gap 3 mmol/L (4-12); Blood Urea Nitrogen 9 mg/dL (7-17); Calcium 8.3 mg/dL (8.4-10.2); Carbon Dioxide 25 mmol/L (22-30); Chloride 96 mmol/L (98-107); Estimated CRCL calculation 70 ml/min; Estimated Glomerular Filt Rate > 60; Glucose 102 mg/dL (65-110); Lactic Acid Reflex 0.8 mmol/L (0.7-2.0); Potassium 2.9 mmol/L (3.4-5.0); Sodium 124 mmol/L (137-145)
--- NOTE | 2024-11-09 06:45 | PC.NURSE ---
Left message for Amelia for a return call to go over MRI screening form.
[2024-11-09] MEDS: ENOXAPARIN 40 MG/0.4 ML SYRINGE SUB-Q (09:11)
[2024-11-09] MEDS: POTASSIUM CHLORIDE 20 MEQ PACKET (FOR LIQUID) 40 MEQ PO (10:41)
[2024-11-09] MEDS: POTASSIUM CHLORIDE INJ 40 MEQ in SODIUM CHLORIDE 0.9% IV 500 ML 130 MEQ IVPB (11:33)
[2024-11-09 12:26] LABS: Sodium Urine Random 26 meq/L
--- NOTE | 2024-11-09 13:09 | PC.NURSE ---
Dr Hanks notified of mri results.
--- NOTE | 2024-11-09 15:20 | PM.IMPN ---
Progress Note: A&P Assessment and Plan (1) Postural dizziness with near syncope: Code(s): R42 - Dizziness and giddiness; R55 - Syncope and collapse Status: Acute Assessment and Plan: Likely from Hyponatremia r/o stroke MRI and ECHO pending patient alert and oriented x 3 this morning Neurology consulted (2) Observed seizure-like activity: Code(s): R56.9 - Unspecified convulsions Status: Acute Assessment and Plan: ?from Hyponatremia continue above workup and neurology consulted (3) Hyponatremia: Code(s): E87.1 - Hypo-osmolality and hyponatremia Status: Acute Assessment and Plan: Triamterene and hydrochlorothiazide on hold (4) Breast CA: Code(s): C50.919 - Malignant neoplasm of unspecified site of unspecified female breast Status: Acute Assessment and Plan: Follow-up in outpatient setting Plan Acute stroke MRI showed acute stroke in the left lingula ECHO showed normal EF with grade I diastolic dysfunction Lipid panel and A1c pending CTA head and neck ordered PT/OT/ST ASpirin, Plavix and Lipitor ordered follow up pending investigations AMS Patient appeared somnolent and less interactive today Daughter at bedside noted that patient has been haivng insomnia since the past 6 weeks when she was taken off her estrogen as she was diagnosed of breast can EEG pending Seroquel at night Hyponatremia Na 24 today, urine SOdium 26 Poor intake today start NS and monitor Continue holding Triamterene and HCTZ Breast Ca Patient's care domiciled at [facility] ST continue outpatient follow up over there Hypothyroidism conitnue home Levothyroxine Hypertension Titrate home meds with clinical course DVT prophylaxis on Lovenox Subjective Date/time seen: 11/09/24 15:20 Interval history: Patient comfortable at bedside but appears lethargic MRI brain showed acute stroke CTA head and neck, EEG, Lipid panel and a1c pending Review of Systems Review of Systems: Patient has no recollection of events however states that has a headache, has been having hot flashes and profuse diaphoresis, has not been able to sleep in several days Exam Narrative: Patient laying in a stretcher Const: General: comfortable, no acute distress, well developed, alert, awake and average body habitus Nutritional Appearance: average body habitus Orientation/consciousness: patient oriented x3 HENMT: Head: normal to inspection, normocephalic and atraumatic Ears: hearing grossly normal bilaterally Face/Nose/Sinus: normal facial exam Face and sinus: normal facial exam Eyes: General: appearance normal, both eyes and all related structures Pupils: Equal, round and reactive pupils present EOM: EOMs intact bilaterally Neck: Neck: full ROM, no lymphadenopathy and no JVD Thyroid: thyroid normal Lymphatic: no lymphadenopathy noted Resp: Effort & Inspection: normal respiratory effort and able to speak in complete sentences Auscultation: clear to auscultation bilaterally Cardio: Jugular venous distension: no JVD Rate: regular rate Rhythm: regular rhythm Heart sounds: S1 normal heart sound present and S2 normal heart sound present : General: Yes deferred Skin: Rashes: no rashes Wounds: no wounds Neuro: General: patient oriented x3, CN's II-XI intact bilaterally and Unable to assess gait Cranial nerves: Yes CN's II-XII intact bilaterally and Yes Equal, round and reactive pupils present Cognition (Neuro): normal cognition Speech: normal speech Gait exam (Neuro): Unable to assess gait Motor exam (neuro): 5/5 motor strength present throughout Extrem: General: normal to inspection, full ROM, no joint enlargement and no pedal edema Objective Data Vital Signs Vital Signs: Vital Signs - 24 hr 11/08/24 16:00 11/08/24 18:00 11/08/24 20:00 Temperature 100 F H Pulse Rate 97 Respiratory Rate Blood Pressure Pulse Oximetry Oxygen Delivery Room Air 11/08/24 20:00 11/08/24 22:00 11/09/24 00:00 Temperature 98.7 F Pulse Rate 79 85 90 Respiratory Rate 18 Blood Pressure 117/45 L Pulse Oximetry 97 Oxygen Delivery 11/09/24 04:00 11/09/24 05:23 11/09/24 06:00 Temperature 101.4 F H 101.4 F H Pulse Rate 115 H 110 H Respiratory Rate 16 Blood Pressure 124/53 L Pulse Oximetry 95 Oxygen Delivery 11/09/24 06:23 11/09/24 08:00 11/09/24 08:00 Temperature 98.6 F Pulse Rate 94 Respiratory Rate Blood Pressure Pulse Oximetry 95 Oxygen Delivery Room Air 11/09/24 10:23 11/09/24 12:00 11/09/24 14:00 Temperature 97.8 F Pulse Rate 112 H 92 Respiratory Rate 18 Blood Pressure 124/48 L Pulse Oximetry 94 Oxygen Delivery Room Air Intake/Output Intake/Output: Intake & Output 11/06/24 11/07/24 11/08/24 11/09/24 23:59 23:59 23:59 23:59 Intake Total 1000 1868 800 Balance 1000 1868 800 Meds/Results Medications: Active Medications Generic Name Dose Route Start Last Admin Trade Name Freq PRN Reason Stop Dose Admin Acetaminophen 1,000 mg 11/08/24 05:38 11/09/24 05:23 Acetaminophen 500 Mg Tablet PO 1,000 mg Q6H PRN Administration Mild Pain (1-3) or Fever Al Hydrox/Mg Hydrox/Simethicone 30 ml 11/08/24 05:38 Mag Hydrox/Al Hydrox/Simeth 30 Ml Udc PO Q6H PRN Indigestion Aspirin 81 mg 11/10/24 09:00 Aspirin 81 Mg Enteric Tablet PO QAM [facility] Atorvastatin Calcium 20 mg 11/10/24 09:00 Atorvastatin 20 Mg Tablet PO DAILY [facility] Clopidogrel Bisulfate 75 mg 11/10/24 09:00 Clopidogrel Bisulfate 75 Mg Tablet PO QAM [facility] Enoxaparin Sodium 40 mg 11/08/24 12:00 11/09/24 09:11 Enoxaparin 40 Mg/0.4 Ml Syringe SUB-Q 40 mg DAILY [facility] Administration Levothyroxine Sodium 100 mcg 11/08/24 06:30 11/09/24 05:23 Levothyroxine Sodium 100 Mcg Tablet PO 100 mcg DAILY@0630 [facility] Administration Perflutren Lipid Microsphere 0 ml 11/07/24 23:23 Perflutren Lipid Microspheres 1.5 Ml Vial Diluted To 10 Ml Total Volume IV PUSH 11/10/24 23:24 ONCE PRN adequate visualization Protocol Polyethylene Glycol 17 gm 11/08/24 05:38 Polyethylene Glycol 3350 17 Gm Powd.Pack PO QAM PRN Constipation Sodium Chloride 1 gm 11/09/24 17:00 Sodium Chloride 1 Gm Tablet PO TID [facility] Radiology Results: ITS Impressions Head CT 11/07/24 20:13 Impression: No acute intracranial hemorrhage or suspicious mass effect. Partial opacification of the posterior most bilateral mastoid air cells with air-fluid levels. Chest X-Ray 11/09/24 06:17 IMPRESSION: 1. Mild atelectasis at left lung base. Brain MRI 11/09/24 11:29 IMPRESSION: 1. 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 Labs Labs: Laboratory Results - last 24 hr 11/09/24 11/09/24 06:21 10:46 WBC 5.7 RBC 3.92 L Hgb 12.7 Hct 35.9 L MCV 91.6 MCH 32.4 MCHC 35.4 RDW 12.2 Plt Count 220 MPV 8.7 Immature Gran % (Auto) 1.0 H Neut % (Auto) 63.0 Lymph % (Auto) 18.7 [place] % (Auto) 16.1 H Eos % (Auto) 0.3 Baso % (Auto) 0.9 Lymph # (Auto) 1.07 [place] # (Auto) 0.9 H Eos # (Auto) 0.0 Baso # (Auto) 0.1 Abs Immat Gran (auto) 0.06 H Absolute Neuts (auto) 3.6 Absolute Nucleated RBC 0.000 Nucleated RBC % 0.0 Sodium 124 L Potassium 2.9 L Chloride 96 L Carbon Dioxide 25 Anion Gap 3 L BUN 9 Creatinine 0.50 L Estim Creat Clear Calc 70 Estimated GFR > 60 Glucose 102 Lactic Acid 0.8 Calcium 8.3 L TSH (Reflex) 0.870 Ur Random Sodium 26
[2024-11-09 15:51] LABS: Cholesterol 181 mg/dL (0-200); HDL Direct 77 mg/dL; Triglycerides 58 mg/dL (<150)
[2024-11-09 16:00] LABS: Hemoglobin A1C 5.2 % (<5.7)
[2024-11-09 16:02] LABS: LDL Cholesterol Direct 71 mg/dL
[2024-11-09] MEDS: SODIUM CHLORIDE 0.9% IV 1,000 ML 75 ML IV CONT (16:56)
[2024-11-09] MEDS: SODIUM CHLORIDE 1 GM TABLET PO (18:13)
[2024-11-09] MEDS: ONDANSETRON INJ 4 MG/2 ML VIAL IV PUSH (18:13)
[2024-11-09] MEDS: QUEtiapine FUMARATE 25 MG TABLET PO (20:57)
[2024-11-10] VITALS (9 sets, daily range): BP systolic 122–137; BP diastolic 46–63; PULSE 77–95; RESP 16–18; TEMP 36.6–37.1; O2SAT 90–98
[2024-11-10] MEDS: SODIUM CHLORIDE 0.9% IV 1,000 ML 75 ML IV CONT ×2 (04:56→16:31)
[2024-11-10] MEDS: LEVOTHYROXINE SODIUM 100 MCG TABLET PO (04:56)
[2024-11-10 07:51] LABS: Basophils Percent Auto 0.5 % (0.2-1.2); Hematocrit 32.2 % (37.0-47.0); Immature Granulocyte Absolute 0.07 K/mm3 (0.00-0.031); Immature Granulocyte Percent A 1.2 % (0-0.5); Lymphocytes Percent Auto 12.3 % (18.3-44.2); Mean Corpuscular HGB Conc 34.2 g/dl (32-36); Mean Corpuscular Hemoglobin 31.4 pg (26-34); Mean Platelet Volume 8.8 fl (7.4-10.4); Monocytes Absolute Auto 0.7 K/mm3 (0.1-0.6); Neutrophils Absolute Auto 4.2 K/mm3 (1.3-6.7); Platelet Count Result 222 k/mm3 (150-375); Red Cell Distribution Width 12.1 % (11.5-14.5); White Blood Count 5.7 K/mm3 (4.5-10.0)
[2024-11-10 08:08] LABS: Alanine Aminotransferase 23 U/L (6-35); Albumin Level 3.3 g/dL (3.5-5.1); Alkaline Phosphatase 40 U/L (38-126); Anion Gap 3 mmol/L (4-12); Aspartate Amino Transferase 31 U/L (14-36); Bilirubin,Total 0.4 mg/dL (0.2-1.3); Blood Urea Nitrogen 10 mg/dL (7-17); Calcium 7.8 mg/dL (8.4-10.2); Carbon Dioxide 26 mmol/L (22-30); Chloride 102 mmol/L (98-107); Estimated CRCL calculation 85 ml/min; Estimated Glomerular Filt Rate > 60; Glucose 98 mg/dL (65-110); Magnesium 1.8 mg/dL (1.6-2.3); Potassium 3.4 mmol/L (3.4-5.0); Sodium 131 mmol/L (137-145)
[2024-11-10] MEDS: ATORVASTATIN 20 MG TABLET PO (08:21)
[2024-11-10] MEDS: CLOPIDOGREL BISULFATE 75 MG TABLET PO (08:21)
[2024-11-10] MEDS: ASPIRIN 81 MG ENTERIC TABLET PO (08:21)
[2024-11-10] MEDS: ENOXAPARIN 40 MG/0.4 ML SYRINGE SUB-Q (08:21)
[2024-11-10] MEDS: SODIUM CHLORIDE 1 GM TABLET PO ×3 (08:24→16:27)
[2024-11-10] MEDS: ACETAMINOPHEN 500 MG TABLET 1000 MG PO ×2 (09:34→16:25)
--- NOTE | 2024-11-10 12:30 | PM.IMPN ---
Progress Note: A&P Assessment and Plan (1) Postural dizziness with near syncope: Code(s): R42 - Dizziness and giddiness; R55 - Syncope and collapse Status: Acute Assessment and Plan: Likely from Hyponatremia r/o stroke MRI and ECHO pending patient alert and oriented x 3 this morning Neurology consulted (2) Observed seizure-like activity: Code(s): R56.9 - Unspecified convulsions Status: Acute Assessment and Plan: ?from Hyponatremia continue above workup and neurology consulted (3) Hyponatremia: Code(s): E87.1 - Hypo-osmolality and hyponatremia Status: Acute Assessment and Plan: Triamterene and hydrochlorothiazide on hold (4) Breast CA: Code(s): C50.919 - Malignant neoplasm of unspecified site of unspecified female breast Status: Acute Assessment and Plan: Follow-up in outpatient setting Plan Acute stroke MRI showed acute stroke in the left lingula ECHO showed normal EF with grade I diastolic dysfunction Lipid panel and A1c pending CTA head and neck ordered PT/OT/ST ASpirin, Plavix and Lipitor ordered follow up pending investigations AMS Patient appeared somnolent and less interactive today Daughter at bedside noted that patient has been haivng insomnia since the past 6 weeks when she was taken off her estrogen as she was diagnosed of breast can EEG pending Seroquel at night Hyponatremia, resolving Na 131 today, Po intake improving Continue NS Continue holding Triamterene and HCTZ Breast Ca Patient's care domiciled at [facility] ST continue outpatient follow up over there Hypothyroidism continue home Levothyroxine Hypertension Titrate home meds with clinical course DVT prophylaxis on Lovenox Subjective Date/time seen: 11/10/24 12:30 Interval history: Patient comfortable at bedside Review of Systems Review of Systems: Patient has no recollection of events however states that has a headache, has been having hot flashes and profuse diaphoresis, has not been able to sleep in several days Exam Narrative: Patient laying in a stretcher Const: General: comfortable, no acute distress, well developed, alert, awake and average body habitus Nutritional Appearance: average body habitus Orientation/consciousness: patient oriented x3 HENMT: Head: normal to inspection, normocephalic and atraumatic Ears: hearing grossly normal bilaterally Face/Nose/Sinus: normal facial exam Face and sinus: normal facial exam Eyes: General: appearance normal, both eyes and all related structures Pupils: Equal, round and reactive pupils present EOM: EOMs intact bilaterally Neck: Neck: full ROM, no lymphadenopathy and no JVD Thyroid: thyroid normal Lymphatic: no lymphadenopathy noted Resp: Effort & Inspection: normal respiratory effort and able to speak in complete sentences Auscultation: clear to auscultation bilaterally Cardio: Jugular venous distension: no JVD Rate: regular rate Rhythm: regular rhythm Heart sounds: S1 normal heart sound present and S2 normal heart sound present : General: Yes deferred Skin: Rashes: no rashes Wounds: no wounds Neuro: General: patient oriented x3, CN's II-XI intact bilaterally and Unable to assess gait Cranial nerves: Yes CN's II-XII intact bilaterally and Yes Equal, round and reactive pupils present Cognition (Neuro): normal cognition Speech: normal speech Gait exam (Neuro): Unable to assess gait Motor exam (neuro): 5/5 motor strength present throughout Extrem: General: normal to inspection, full ROM, no joint enlargement and no pedal edema Objective Data Vital Signs Vital Signs: Vital Signs - 24 hr 11/09/24 14:00 11/09/24 16:00 11/09/24 20:00 Temperature 97.8 F Pulse Rate 92 88 Respiratory Rate 18 Blood Pressure 124/48 L Pulse Oximetry 94 Oxygen Delivery Room Air 11/09/24 20:00 11/09/24 22:00 11/10/24 00:00 Temperature 99.4 F Pulse Rate 90 98 87 Respiratory Rate 20 Blood Pressure 142/62 H Pulse Oximetry 93 Oxygen Delivery 11/10/24 04:00 11/10/24 05:27 11/10/24 08:00 Temperature 97.9 F Pulse Rate 85 91 Respiratory Rate 16 Blood Pressure 122/46 L Pulse Oximetry 98 98 Oxygen Delivery Room Air Intake/Output Intake/Output: Intake & Output 11/07/24 11/08/24 11/09/24 11/10/24 23:59 23:59 23:59 23:59 Intake Total 1000 3261 041 7734 Balance 1000 7296 011 9642 Meds/Results Medications: Active Medications Generic Name Dose Route Start Last Admin Trade Name Freq PRN Reason Stop Dose Admin Acetaminophen 1,000 mg 11/08/24 05:38 11/10/24 09:34 Acetaminophen 500 Mg Tablet PO 1,000 mg Q6H PRN Administration Mild Pain (1-3) or Fever Al Hydrox/Mg Hydrox/Simethicone 30 ml 11/08/24 05:38 Mag Hydrox/Al Hydrox/Simeth 30 Ml Udc PO Q6H PRN Indigestion Aspirin 81 mg 11/10/24 09:00 11/10/24 08:21 Aspirin 81 Mg Enteric Tablet PO 81 mg QAM JESSICA Administration Atorvastatin Calcium 20 mg 11/10/24 09:00 11/10/24 08:21 Atorvastatin 20 Mg Tablet PO 20 mg DAILY JESSICA Administration Clopidogrel Bisulfate 75 mg 11/10/24 09:00 11/10/24 08:21 Clopidogrel Bisulfate 75 Mg Tablet PO 75 mg QAM JESSICA Administration Enoxaparin Sodium 40 mg 11/08/24 12:00 11/10/24 08:21 Enoxaparin 40 Mg/0.4 Ml Syringe SUB-Q 40 mg DAILY JESSICA Administration Sodium Chloride 1,000 mls @ 75 mls/hr 11/09/24 15:30 11/10/24 04:56 Normal Saline Iv IV CONT 75 mls/hr .[id number] JESSICA Administration Levothyroxine Sodium 100 mcg 11/08/24 06:30 11/10/24 04:56 Levothyroxine Sodium 100 Mcg Tablet PO 100 mcg DAILY@0630 JESSICA Administration Ondansetron HCl 4 mg 11/09/24 18:04 11/09/24 18:13 Ondansetron Inj 4 Mg/2 Ml Vial IV PUSH 4 mg Q4H PRN Administration Nausea And Vomiting Perflutren Lipid Microsphere 0 ml 11/07/24 23:23 Perflutren Lipid Microspheres 1.5 Ml Vial Diluted To 10 Ml Total Volume IV PUSH 11/10/24 23:24 ONCE PRN adequate visualization Protocol Polyethylene Glycol 17 gm 11/08/24 05:38 Polyethylene Glycol 3350 17 Gm Powd.Pack PO QAM PRN Constipation Quetiapine Fumarate 25 mg 11/09/24 21:00 11/09/24 20:57 Quetiapine Fumarate 25 Mg Tablet PO 25 mg HS JESSICA Administration Sodium Chloride 1 gm 11/09/24 17:00 11/10/24 08:24 Sodium Chloride 1 Gm Tablet PO 1 gm TID JESSICA Administration Radiology Results: ITS Impressions Head CT 11/07/24 20:13 Impression: No acute intracranial hemorrhage or suspicious mass effect. Partial opacification of the posterior most bilateral mastoid air cells with air-fluid levels. Chest X-Ray 11/09/24 06:17 IMPRESSION: 1. Mild atelectasis at left lung base. Brain MRI 11/09/24 11:29 IMPRESSION: 1. 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 Head/Neck CTA 11/09/24 16:22 IMPRESSION: 1. Normal CTA neck. Percent stenosis per NASCET criteria is 0%. 2. No intracranial occlusion or significant stenosis seen. Carotid Doppler Study 11/10/24 09:27 IMPRESSION: 1. <50% stenosis from minimal plaque in the right internal carotid artery. 2. <50% stenosis from minimal plaque in the left internal carotid artery. Labs Labs: Laboratory Results - last 24 hr 11/09/24 11/10/24 06:10 07:38 WBC 5.7 RBC 3.50 L Hgb 11.0 L Hct 32.2 L MCV 92.0 MCH 31.4 MCHC 34.2 RDW 12.1 Plt Count 222 MPV 8.8 Immature Gran % (Auto) 1.2 H Neut % (Auto) 73.0 Lymph % (Auto) 12.3 L [place] % (Auto) 13.0 H Eos % (Auto) 0.0 Baso % (Auto) 0.5 Lymph # (Auto) 0.70 L [place] # (Auto) 0.7 H Eos # (Auto) 0.0 Baso # (Auto) 0.0 Abs Immat Gran (auto) 0.07 H Absolute Neuts (auto) 4.2 Absolute Nucleated RBC 0.000 Nucleated RBC % 0.0 Sodium 131 L Potassium 3.4 Chloride 102 Carbon Dioxide 26 Anion Gap 3 L BUN 10 Creatinine 0.40 L Estim Creat Clear Calc 85 Estimated GFR > 60 Glucose 98 Hemoglobin A1c 5.2 Calcium 7.8 L Magnesium 1.8 Total Bilirubin 0.4 AST 31 ALT 23 Alkaline Phosphatase 40 Total Protein 6.0 L Albumin 3.3 L Triglycerides 58 Cholesterol 181 LDL Cholesterol Direct 71 HDL Direct 77
[2024-11-10 14:23] LABS: Osmolality, Urine 578 mOsm/kg (50-1200)
[2024-11-10 14:23] LABS: Osmolality, Urine 492 mOsm/kg (50-1200)
[2024-11-10] MEDS: ONDANSETRON INJ 4 MG/2 ML VIAL IV PUSH (16:25)
[2024-11-10] MEDS: IBUPROFEN 200 MG TABLET PO (17:45)
[2024-11-10] MEDS: QUEtiapine FUMARATE 25 MG TABLET PO (20:04)
[2024-11-11] VITALS (8 sets, daily range): BP systolic 101–132; BP diastolic 35–49; PULSE 68–96; RESP 16–18; TEMP 37–38; O2SAT 93–96
[2024-11-11] MEDS: LEVOTHYROXINE SODIUM 100 MCG TABLET PO (05:11)
[2024-11-11 06:46] LABS: Basophils Percent Auto 0.3 % (0.2-1.2); Eosinophils Percent Auto 0.1 % (0-4.4); Hematocrit 31.7 % (37.0-47.0); Hemoglobin 11.1 g/dL (12.0-15.0); Immature Granulocyte Absolute 0.12 K/mm3 (0.00-0.031); Immature Granulocyte Percent A 1.7 % (0-0.5); Lymphocytes Percent Auto 4.3 % (18.3-44.2); Mean Corpuscular Hemoglobin 32.1 pg (26-34); Mean Corpuscular Volume 91.6 fl (80-100); Mean Platelet Volume 9.2 fl (7.4-10.4); Monocytes Absolute Auto 0.3 K/mm3 (0.1-0.6); Monocytes Percent Auto 4.2 % (2.6-8.5); Neutrophils Absolute Auto 6.2 K/mm3 (1.3-6.7); Neutrophils Percent Auto 89.4 % (45.5-73.1); Platelet Count Result 249 k/mm3 (150-375); Red Blood Count 3.46 M/mm3 (4.2-5.4); Red Cell Distribution Width 12.1 % (11.5-14.5); White Blood Count 6.9 K/mm3 (4.5-10.0)
[2024-11-11 07:04] LABS: Alanine Aminotransferase 25 U/L (6-35); Albumin Level 3.6 g/dL (3.5-5.1); Alkaline Phosphatase 46 U/L (38-126); Anion Gap 4 mmol/L (4-12); Aspartate Amino Transferase 33 U/L (14-36); Bilirubin,Total 0.4 mg/dL (0.2-1.3); Blood Urea Nitrogen 11 mg/dL (7-17); Calcium 7.7 mg/dL (8.4-10.2); Carbon Dioxide 27 mmol/L (22-30); Chloride 100 mmol/L (98-107); Estimated CRCL calculation 70 ml/min; Estimated Glomerular Filt Rate > 60; Glucose 120 mg/dL (65-110); Magnesium 1.8 mg/dL (1.6-2.3); Potassium 3.1 mmol/L (3.4-5.0); Sodium 131 mmol/L (137-145)
[2024-11-11] MEDS: ASPIRIN 81 MG ENTERIC TABLET PO (08:23)
[2024-11-11] MEDS: ATORVASTATIN 20 MG TABLET PO (08:23)
[2024-11-11] MEDS: CLOPIDOGREL BISULFATE 75 MG TABLET PO (08:23)
[2024-11-11] MEDS: ENOXAPARIN 40 MG/0.4 ML SYRINGE SUB-Q (08:23)
[2024-11-11] MEDS: SODIUM CHLORIDE 1 GM TABLET PO ×3 (08:23→17:21)
--- NOTE | 2024-11-11 12:01 | P.CONNEU_ITS ---
Assessment and Plan Assessment and plan (1) Observed seizure-like activity: Code(s): R56.9 - Unspecified convulsions Status: Acute (2) Hyponatremia: Code(s): E87.1 - Hypo-osmolality and hyponatremia Status: Acute Plan 1. Dementia 2. History of carcinoma of the breast recently diagnosed. 3. Hypothyroidism. 4. History of depression. 5. Description of possible seizures but with normal EEG at present. 6. Hyponatremia. Patient definitely has ongoing dementia, the situation could have been complicated by the electrolyte imbalance with resultant focal seizure. Patient has been receiving the ongoing anti depressant medication, will need to discuss with the family the need for the anticonvulsant even if the EEG is normal. Her head neck CTA is clear, and echocardiogram is also not significant which changed the medication. I will continue aspirin, and Plavix only for the next 6 weeks and also continue the anticonvulsants. Hyponatremia could have been the triggering factor as well for the seizure but considering the dementia she will benefit from the anticonvulsants. If any question arises please do not hesitate to contact. Consult date: 11/11/24 HPI: Arleen Pettit is a 79 year old female Admitted to [facility] through the emergency room for the complaints of change in the mental status ,as per the information available from the ER notes ,patient drove from her house to family's house in normal condition, While she was there and making a salad and making conversation with the family members, she became acutely confused. She would not answer any questions, would stare of ,and this episode lasted for about 15minutes, since then she has been awake,alert oriented x4 but then it recurred around 4:10 p.m. and then she has not returned to her baseline mental status ,earlier in the day she had complained of lightheadedness, she remembered hot flashes nausea and feeling tingling all over her body ,at this time patient was completely unaware of the whole event there was no history of seizures, stroke, or any cardiac disease in the past and she was not complaining of any specific other neurological problems. Reportedly she is allergic to penicillin, And her initial exam in the emergency room was normal, With normal vital signs, chest x-ray negative, head CT scan without any vascular abnormalities or bleed, head and neck CTA revealed no stenosis no aneurysm or intracranial occlusion, but subsequently on the floor MRI has documented acute infarct in the left insula, at present she is receiving aspirin 81mg daily and clopidogrel 75mg daily, she has been continued on levothyroxine 100mcg daily being supplemented with sodium chloride 1g p.o. t.i.d. and also Seroquel 25mg at night, echocardiogram has already been done which reveals only left ventricular diastolic function grade 1 with trace tricuspid valve regurgitation. During the hospitalization her hyponatremia is resolving with most recent serum sodium of 131 compare to 124 at the time of admission. At present triamterene and hydrochlorothiazide are being withheld, patient does have history of carcinoma of the breast for which she is being followed by the physicians at [facility] Review of Systems 2 Review of Systems: All systems reviewed & are unremarkable except as noted in HPI and below PMFSH Social History Social History Smoking status: Never smoker Second hand tobacco smoke exposure: No Alcohol intake: current Drinks per week: 7 Substance use: never Do You Feel Safe in your Home?: Yes Lack of Transportation: No Lack of Food: Never True Current Housing: I Have Housing Concerned About Future Housing: No Difficulty Paying Gas/Electric Bills: No Difficulty Paying for Meds: No Currently Unemployed: No Education: High School Diploma/GED Difficulty w/ Childcare or Family Care: No Spiritual care concerns: No Meds Home Medications and Allergies Home Medications ?Medication ?Instructions ?Recorded ?Confirmed ?Type levothyroxine 100 mcg tablet 100 mcg PO DAILY 11/08/24 11/08/24 History metoprolol succinate 50 mg 50 mg PO DAILY 11/08/24 11/08/24 History tablet,extended release 24 hr olmesartan 5 mg tablet 5 mg PO DAILY 11/08/24 11/08/24 History triamterene 37.5 1 cap PO DAILY 11/08/24 11/08/24 History mg-hydrochlorothiazide 25 mg capsule venlafaxine 37.5 mg 37.5 mg PO DAILY 11/08/24 11/08/24 History capsule,extended release 24 hr vitamin E 268 mg (400 unit) capsule 268 mg PO DAILY 11/08/24 11/08/24 History Allergies Allergy/AdvReac Type Severity Reaction Status Date / Time Penicillins Allergy Intermediate Rash Verified 11/07/24 19:32 Vital Signs Vital Signs - 24 hr 11/10/24 14:00 11/10/24 16:00 11/10/24 20:00 Temperature 37.1 C Pulse Rate 88 80 85 Respiratory Rate 18 Blood Pressure 137/52 L Pulse Oximetry 90 Oxygen Delivery Fraction of Inspired Oxygen 11/10/24 21:25 11/11/24 00:00 11/11/24 04:00 Temperature 36.8 C Pulse Rate 77 88 96 Respiratory Rate 18 Blood Pressure 123/63 Pulse Oximetry 94 Oxygen Delivery Fraction of Inspired Oxygen 11/11/24 05:30 11/11/24 08:54 Temperature 38.0 C H Pulse Rate 91 Respiratory Rate 18 Blood Pressure 132/47 L Pulse Oximetry 93 94 Oxygen Delivery Room Air Fraction of Inspired Oxygen 21 Exam 2 Narrative: On today's examination patient is awake alert and cooperative, she is able to carry out the conversation but his speech is dysphasic and she is unable to complete the sentences, she follows instruction intermittently and is still does not complete the follow-up, she knows that she is in the hospital, she is unable to give the date and month and year, she is thinking the people are coming to her place and I should join them they will be coming soon, her head is normocephalic with no bruit, ear nose throat examination normal, neck supple with no meningeal signs no cervical bruit no thyromegaly and no lymphadenopathy, heart regular ,lungs clear to auscultation, abdomen is soft and nontender with normal bowel sounds, neurologically she is awake alert with eyes open and following the instruction to look in different directions also able to stick her tongue out when asked to do so, there is no nystagmus, the palpebral fissure is symmetric, face symmetrical, tongue is in the oral cavity with no fasciculations and she was able to protrude out with no deviation, motor examination revealed her to have no drift of 1 side or other side, tone was normal, reflexes were symmetrical and plantars were questionable she had difficulties in following instruction for [id number]-finger bilaterally. Results Labs 11/11/24 06:19 11/11/24 06:19 Labs: Short CBC 11/11/24 Range/Units 06:19 WBC 6.9 (4.5-10.0) K/mm3 Hgb 11.1 L (12.0-15.0) g/dL Hct 31.7 L (37.0-47.0) % Plt Count 249 (150-375) k/mm3 BMP 11/11/24 06:19 Sodium 131 L Potassium 3.1 L Chloride 100 Carbon Dioxide 27 BUN 11 Creatinine 0.50 L Glucose 120 H Calcium 7.7 L Liver Function 11/11/24 Range/Units 06:19 Total Bilirubin 0.4 (0.2-1.3) mg/dL AST 33 (14-36) U/L ALT 25 (6-35) U/L Alkaline Phosphatase 46 (38-126) U/L Albumin 3.6 (3.5-5.1) g/dL
--- NOTE | 2024-11-11 12:44 | P.NEURO_ITS ---
Neurology EEG Report General Information Date of Study: 11/10/24 TEST EEG. DIAGNOSIS Seizures. CONDITION OF RECORDING Drowsy and asleep. 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 Not sure why she is here. Thinks, she might have lost consciousness. EEG DESCRIPTION During drowsiness low to medium voltage 6 to 7 hertz per 2nd theta activity seen evolving into bilateral symmetrical admixture of low-voltage beta activity and 6 to 7 low to medium voltage theta activity and bilateral symmetrical sleep spindles. Hyperventilation not done. Photic stimulation not done. Non paroxysmal. Nonfocal. Nonlateralizing. IMPRESSION Normal record during drowsiness and during sleep.
--- NOTE | 2024-11-11 13:53 | PCPTNOTE ---
Attempted to see patient for PT, however patient refused. Encouraged patient for participation and patient's family member present to encourage patient for participation, patient continued to refuse.
[2024-11-11] MEDS: ACETAMINOPHEN 500 MG TABLET 1000 MG PO (14:00)
--- NOTE | 2024-11-11 15:41 | P.PNIM_ITS ---
Progress Note: A&P Assessment and Plan (1) Postural dizziness with near syncope: Code(s): R42 - Dizziness and giddiness; R55 - Syncope and collapse Status: Acute Assessment and Plan: Likely from Hyponatremia r/o stroke MRI and ECHO pending patient alert and oriented x 3 this morning Neurology consulted (2) Observed seizure-like activity: Code(s): R56.9 - Unspecified convulsions Status: Acute Assessment and Plan: ?from Hyponatremia continue above workup and neurology consulted (3) Hyponatremia: Code(s): E87.1 - Hypo-osmolality and hyponatremia Status: Acute Assessment and Plan: Triamterene and hydrochlorothiazide on hold (4) Breast CA: Code(s): C50.919 - Malignant neoplasm of unspecified site of unspecified female breast Status: Acute Assessment and Plan: Follow-up in outpatient setting Plan Acute stroke MRI showed acute stroke in the left lingula ECHO showed normal EF with grade I diastolic dysfunction Lipid panel and A1c pending CTA head and neck ordered PT/OT/ST ASpirin, Plavix and Lipitor ordered follow up pending investigations AMS, improving neurology evaluated and reckons patient has Dementia EEG normal, however neurology recommended Keppra Continue Keppra, Seroquel at nighttime Neurology following B12 and TSH ordered Hyponatremia, resolving Na 131 today, Po intake improving Continue holding Triamterene and HCTZ Breast Ca Patient's care domiciled at [facility] ST continue outpatient follow up over there Hypothyroidism continue home Levothyroxine Hypertension Titrate home meds with clinical course DVT prophylaxis on Lovenox Subjective Date/time seen: 11/11/24 15:41 Interval history: Patient comfortable at bedside neurology eval noted Review of Systems Review of Systems: Patient has no recollection of events however states that has a headache, has been having hot flashes and profuse diaphoresis, has not been able to sleep in several days Exam Narrative: Patient laying in a stretcher Const: General: comfortable, no acute distress, well developed, alert, awake and average body habitus Nutritional Appearance: average body habitus Orientation/consciousness: patient oriented x3 HENMT: Head: normal to inspection, normocephalic and atraumatic Ears: hearing grossly normal bilaterally Face/Nose/Sinus: normal facial exam Face and sinus: normal facial exam Eyes: General: appearance normal, both eyes and all related structures Pupils: Equal, round and reactive pupils present EOM: EOMs intact bilaterally Neck: Neck: full ROM, no lymphadenopathy and no JVD Thyroid: thyroid normal Lymphatic: no lymphadenopathy noted Resp: Effort & Inspection: normal respiratory effort and able to speak in complete sentences Auscultation: clear to auscultation bilaterally Cardio: Jugular venous distension: no JVD Rate: regular rate Rhythm: regular rhythm Heart sounds: S1 normal heart sound present and S2 normal heart sound present : General: Yes deferred Skin: Rashes: no rashes Wounds: no wounds Neuro: General: patient oriented x3, CN's II-XI intact bilaterally and Unable to assess gait Cranial nerves: Yes CN's II-XII intact bilaterally and Yes Equal, round and reactive pupils present Cognition (Neuro): normal cognition Speech: normal speech Gait exam (Neuro): Unable to assess gait Motor exam (neuro): 5/5 motor strength present throughout Extrem: General: normal to inspection, full ROM, no joint enlargement and no pedal edema Objective Data Vital Signs Vital Signs: Vital Signs - 24 hr 11/10/24 16:00 11/10/24 20:00 11/10/24 21:25 Temperature 98.2 F Pulse Rate 80 85 77 Respiratory Rate 18 Blood Pressure 123/63 Pulse Oximetry 94 Oxygen Delivery Fraction of Inspired Oxygen 11/11/24 00:00 11/11/24 04:00 11/11/24 05:30 Temperature 100.4 F H Pulse Rate 88 96 91 Respiratory Rate 18 Blood Pressure 132/47 L Pulse Oximetry 93 Oxygen Delivery Fraction of Inspired Oxygen 11/11/24 08:00 11/11/24 08:00 11/11/24 08:54 Temperature Pulse Rate 87 Respiratory Rate Blood Pressure Pulse Oximetry 94 Oxygen Delivery Room Air Room Air Fraction of Inspired Oxygen 21 Intake/Output Intake/Output: Intake & Output 11/08/24 11/09/24 11/10/24 11/11/24 23:59 23:59 23:59 23:59 Intake Total 2047 452 0737.7 360 Balance 6786 295 0404.7 360 Meds/Results Medications: Active Medications Generic Name Dose Route Start Last Admin Trade Name Freq PRN Reason Stop Dose Admin Acetaminophen 1,000 mg 11/08/24 05:38 11/11/24 14:00 Acetaminophen 500 Mg Tablet PO 1,000 mg Q6H PRN Administration Mild Pain (1-3) or Fever Al Hydrox/Mg Hydrox/Simethicone 30 ml 11/08/24 05:38 Mag Hydrox/Al Hydrox/Simeth 30 Ml Udc PO Q6H PRN Indigestion Aspirin 81 mg 11/10/24 09:00 11/11/24 08:23 Aspirin 81 Mg Enteric Tablet PO 81 mg QAM JESSICA Administration Atorvastatin Calcium 20 mg 11/10/24 09:00 11/11/24 08:23 Atorvastatin 20 Mg Tablet PO 20 mg DAILY JESSICA Administration Clopidogrel Bisulfate 75 mg 11/10/24 09:00 11/11/24 08:23 Clopidogrel Bisulfate 75 Mg Tablet PO 75 mg QAM JESSICA Administration Enoxaparin Sodium 40 mg 11/08/24 12:00 11/11/24 08:23 Enoxaparin 40 Mg/0.4 Ml Syringe SUB-Q 40 mg DAILY JESSICA Administration Levothyroxine Sodium 100 mcg 11/08/24 06:30 11/11/24 05:11 Levothyroxine Sodium 100 Mcg Tablet PO 100 mcg DAILY@0630 JESSICA Administration Ondansetron HCl 4 mg 11/09/24 18:04 11/10/24 16:25 Ondansetron Inj 4 Mg/2 Ml Vial IV PUSH 4 mg Q4H PRN Administration Nausea And Vomiting Polyethylene Glycol 17 gm 11/08/24 05:38 Polyethylene Glycol 3350 17 Gm Powd.Pack PO QAM PRN Constipation Quetiapine Fumarate 25 mg 11/09/24 21:00 11/10/24 20:04 Quetiapine Fumarate 25 Mg Tablet PO 25 mg HS JESSICA Administration Sodium Chloride 1 gm 11/09/24 17:00 11/11/24 14:00 Sodium Chloride 1 Gm Tablet PO 1 gm TID JESSICA Administration Radiology Results: ITS Impressions Head CT 11/07/24 20:13 Impression: No acute intracranial hemorrhage or suspicious mass effect. Partial opacification of the posterior most bilateral mastoid air cells with air-fluid levels. Chest X-Ray 11/09/24 06:17 IMPRESSION: 1. Mild atelectasis at left lung base. Brain MRI 11/09/24 11:29 IMPRESSION: 1. 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 Head/Neck CTA 11/09/24 16:22 IMPRESSION: 1. Normal CTA neck. Percent stenosis per NASCET criteria is 0%. 2. No intracranial occlusion or significant stenosis seen. Carotid Doppler Study 11/10/24 09:27 IMPRESSION: 1. <50% stenosis from minimal plaque in the right internal carotid artery. 2. <50% stenosis from minimal plaque in the left internal carotid artery. Labs Labs: Laboratory Results - last 24 hr 11/11/24 06:19 WBC 6.9 RBC 3.46 L Hgb 11.1 L Hct 31.7 L MCV 91.6 MCH 32.1 MCHC 35.0 RDW 12.1 Plt Count 249 MPV 9.2 Immature Gran % (Auto) 1.7 H Neut % (Auto) 89.4 H Lymph % (Auto) 4.3 L [place] % (Auto) 4.2 Eos % (Auto) 0.1 Baso % (Auto) 0.3 Lymph # (Auto) 0.30 L [place] # (Auto) 0.3 Eos # (Auto) 0.0 Baso # (Auto) 0.0 Abs Immat Gran (auto) 0.12 H Absolute Neuts (auto) 6.2 Absolute Nucleated RBC 0.000 Nucleated RBC % 0.0 Sodium 131 L Potassium 3.1 L Chloride 100 Carbon Dioxide 27 Anion Gap 4 BUN 11 Creatinine 0.50 L Estim Creat Clear Calc 70 Estimated GFR > 60 Glucose 120 H Calcium 7.7 L Magnesium 1.8 Total Bilirubin 0.4 AST 33 ALT 25 Alkaline Phosphatase 46 Total Protein 6.0 L Albumin 3.6
[2024-11-11] MEDS: levETIRAcetam 500 MG TABLET PO ×2 (17:21→22:03)
[2024-11-11] MEDS: QUEtiapine FUMARATE 25 MG TABLET PO (22:03)
[2024-11-12] VITALS (21 sets, daily range): BP systolic 100–148; BP diastolic 52–105; PULSE 78–180; RESP 24–483; TEMP 36.2–39.8; O2SAT 90–97
[2024-11-12] MEDS: LEVOTHYROXINE SODIUM 100 MCG TABLET PO (06:01)
--- NOTE | 2024-11-12 06:31 | PC.NURSE ---
PCT presented this nurse with a respiratory rate of 48 with accessory breathing and wheezing. Patient's other vitals signs are WNL. This nurse then called Dr. Queen. Dr. Queen ordered a breathing treatment for her. Patient does not have IV access. Concern is for a repeat stroke due to declining cognition during the night. Patient is becoming less responsive to her name, unable to answer orientation questions, expressive aphasia and word salad are increasing. Have attempted to look for the results of EEG. No EEG results are in the EHR or paper charting.
[2024-11-12] MEDS: IPRATROPIUM 0.5 MG/ALBUTEROL SULFATE 2.5 MG AMPUL.NEB 3 ML INHALATION (06:41)
[2024-11-12 06:47] LABS: Basophils Percent Auto 0.3 % (0.2-1.2); Hematocrit 31.1 % (37.0-47.0); Hemoglobin 11.1 g/dL (12.0-15.0); Immature Granulocyte Absolute 0.09 K/mm3 (0.00-0.031); Immature Granulocyte Percent A 1.5 % (0-0.5); Lymphocytes Absolute Auto 0.71 K/mm3 (0.9-3.2); Lymphocytes Percent Auto 11.5 % (18.3-44.2); Mean Corpuscular HGB Conc 35.7 g/dl (32-36); Mean Corpuscular Hemoglobin 32.3 pg (26-34); Mean Corpuscular Volume 90.4 fl (80-100); Mean Platelet Volume 9.1 fl (7.4-10.4); Monocytes Absolute Auto 0.7 K/mm3 (0.1-0.6); Monocytes Percent Auto 10.6 % (2.6-8.5); Neutrophils Absolute Auto 4.7 K/mm3 (1.3-6.7); Neutrophils Percent Auto 76.1 % (45.5-73.1); Platelet Count Result 274 k/mm3 (150-375); Red Blood Count 3.44 M/mm3 (4.2-5.4); Red Cell Distribution Width 12.1 % (11.5-14.5); White Blood Count 6.2 K/mm3 (4.5-10.0)
[2024-11-12 06:58] LABS: Alanine Aminotransferase 28 U/L (6-35); Albumin Level 3.5 g/dL (3.5-5.1); Alkaline Phosphatase 41 U/L (38-126); Anion Gap 3 mmol/L (4-12); Aspartate Amino Transferase 41 U/L (14-36); Bilirubin,Total 0.5 mg/dL (0.2-1.3); Blood Urea Nitrogen 12 mg/dL (7-17); Calcium 7.8 mg/dL (8.4-10.2); Carbon Dioxide 29 mmol/L (22-30); Chloride 97 mmol/L (98-107); Estimated CRCL calculation 70 ml/min; Estimated Glomerular Filt Rate > 60; Glucose 95 mg/dL (65-110); Magnesium 1.7 mg/dL (1.6-2.3); Potassium 2.3 mmol/L (3.4-5.0); Sodium 129 mmol/L (137-145)
[2024-11-12] MEDS: FUROSEMIDE INJ 40 MG/4 ML VIAL 20 MG IM (07:13)
[2024-11-12] MEDS: MORPHINE SULFATE (*CRX) 2 MG/ML INJ 1 MG IV PUSH (07:13)
--- NOTE | 2024-11-12 07:28 | ECG_ITS ---
Test Date: 2024-11-12 07:36:42 Measurements Intervals [place] Rate: 157 P: 0 RI: 0 QRS: 6 QRSD: 77 T: 60 QT: 194 QTc: 314 Interpretive Statements ATRIAL FIBRILLATION WITH RAPID VENTRICULAR RESPONSE LOW QRS VOLTAGE IN PRECORDIAL LEADS [QRS DEFLECTION < 1.0 mV IN CHEST LEADS] POSSIBLE ANTERIOR MYOCARDIAL INFARCTION , PROBABLY OLD [30 ms Q WAVE IN V3/V4, OR R < 0.2 mV IN V4] ST DEPRESSION, CONSIDER SUBENDOCARDIAL INJURY [0.1+ mV ST DEPRESSION] CRITICAL TEST RESULT ABNORMAL ECG Electronically Signed On 11-12-2024 09:05:02 HOSPITAL ADMINISTRATIVE ASSISTANT by Percy Britton M.D.
[2024-11-12 07:30] LABS: Thyroid Stimulating Hormone Reflex 0.709 uIU/mL (0.465-4.68)
[2024-11-12 07:42] LABS: Glucose Point of Care 100 mg/dl (65-105)
[2024-11-12] MEDS: MAGNESIUM SULF 2 GM/WATER 50ML 2 GM/50 ML BAG IVPB (07:43)
[2024-11-12] MEDS: METOPROLOL TARTRATE INJ 5 MG/5 ML VIAL 2.5 MG IV PUSH (07:45)
[2024-11-12] MEDS: KCL 40 MEQ/0.9% SOD CHL 1,000 ML 100 ML IV CONT (07:46)
[2024-11-12 07:55] LABS: Lactic Acid Reflex 0.9 mmol/L (0.7-2.0)
[2024-11-12 07:57] LABS: Alveolar/Arterial O2 Gradient 161.4 mmHg; Base Excess ABG 4.4 mEq/l (+/-2.0); Carboxyhemoglobin 0.4 % THb (0-2.0); Fractional Inspired Oxygen 40 %; HCO3 ABG 26.1 mEq/l (22.0-26.0); Methemoglobin ABG 0.3 %THb (0-1.5); Oxygen Content ABG 16.7 %vol (16.0-22.0); Oxygen Saturation ABG 97.8 % (95.0-100.0); PCO2 ABG 29.8 mmHg (35.0-45.0); PO2 ABG 89.5 mmHg (80.0-100.0); PO2 FiO2 Ratio Arterial Blood 2.24 %; Reduced Hemoglobin 2.3 %THb (0-5.0); Total Hemoglobin 12.2 g/dL (12.0-18.0)
[2024-11-12 08:00] LABS: Device NASAL CANNULA; Modified Allen's Test Pass; Site Drawn LEFT RADIAL
[2024-11-12 08:05] LABS: Folic Acid 9.4 ng/mL (2.76->20); Vitamin B12 > 1000.0 pg/mL (239-931)
[2024-11-12] MEDS: dilTIAZem HCl INJ 25 MG/5 ML VIAL 10 MG IV PUSH (08:12)
[2024-11-12] MEDS: dilTIAZem 100 MG/100 ML 100 MG/100 ML BAG IV CONT (08:12)
[2024-11-12] MEDS: levETIRAcetam 500 MG TABLET PO (08:58)
[2024-11-12] MEDS: ENOXAPARIN 40 MG/0.4 ML SYRINGE SUB-Q (08:58)
[2024-11-12] MEDS: ASPIRIN 81 MG ENTERIC TABLET PO (08:58)
[2024-11-12] MEDS: CLOPIDOGREL BISULFATE 75 MG TABLET PO (08:58)
[2024-11-12] MEDS: ATORVASTATIN 20 MG TABLET PO (08:58)
[2024-11-12] MEDS: POTASSIUM CHLORIDE INJ 40 MEQ in SODIUM CHLORIDE 0.9% IV 500 ML 130 MEQ IVPB (09:26)
[2024-11-12] MEDS: METOPROLOL TARTRATE INJ 5 MG/5 ML VIAL IV PUSH (09:26)
--- NOTE | 2024-11-12 10:33 | PM.CNCAR ---
Assessment and Plan Assessment and plan (1) Atrial fibrillation with rapid ventricular response: Code(s): I48.91 - Unspecified atrial fibrillation Status: Acute Assessment and Plan: Patient has gone into atrial fibrillation with rapid ventricular response. She is on diltiazem drip and this will be increased up to 20 milligrams/hour. Depending on response, will try metoprolol pushes plus/minus digoxin plus minus/minus amiodarone as needed or if appropriate depending on blood pressure. She has a chads Vasc score of 6. Anticoagulation is recommended if okay with Neurology. Would utilize heparin drip per protocol. If heparin drip is initiated, decision regarding continuing use of aspirin and clopidogrel will be deferred to Neurology. It appears that she has no cerebrovascular disease however according to CT angiogram and likely or CVA is caused by atrial fibrillation albeit not 100%. (2) Hypertension: Code(s): I10 - Essential (primary) hypertension Status: Acute Assessment and Plan: Holding a trampoline/hydrochlorothiazide because of hyponatremia. On diltiazem for now (3) Breast CA: Code(s): C50.919 - Malignant neoplasm of unspecified site of unspecified female breast Status: Acute Assessment and Plan: Recently diagnosed (4) Hyponatremia: Code(s): E87.1 - Hypo-osmolality and hyponatremia Status: Acute Assessment and Plan: Improved. ? Etiology (5) CVA (cerebral vascular accident): Code(s): I63.9 - Cerebral infarction, unspecified Status: Acute Assessment and Plan: Left insular stroke (6) Hypokalemia: Code(s): E87.6 - Hypokalemia Status: Acute Assessment and Plan: Severe hypokalemia with potassium level 2.3. Is receiving 40 mEq of KCl IV x1. This needs to be repeated at least once and repeat a potassium later this afternoon History of Present Illness History of Present Illness Consult date/time: 11/12/24 10:33 Requesting physician: Janet Hanks MD Consult reason: atrial fibrillation Reason For Visit: Hyponatremia Narrative: Requesting provider: Dr. Hanks Date of service 11/12/2024 Reason for consultation: Atrial fibrillation History: Patient is a 79-year-old female who presented to the hospital with altered consciousness with the patient became unresponsive and was noticed to have lip smacking and bilateral upper extremity nonpurposeful finger movement. She has been recently diagnosed with breast cancer and also has hypertension, hypothyroidism. She was found to be severely hyponatremic. Neurology consultation was performed. Brain MRI showed left insular acute stroke. Last night she went into atrial fibrillation with rapid ventricular response and despite metoprolol and diltiazem, heart rates have still been elevated. She was transferred to the ICU for further evaluation and management. Her transient/hydrochlorothiazide have been withheld because of her hyponatremia and she has been receiving salt tablets. Because of her hyponatremia is not clear in my opinion at this point. Echocardiogram showed preserved ejection fraction. She currently is nonverbal. History is obtained by talking to the stepdaughters and via the phone. She has had no recent cardiac complaints including no chest pain, shortness of breath, syncope, presyncope, paroxysmal nocturnal dyspnea, orthopnea, edema or palpitation Review of Systems Review of Systems: All systems reviewed & are unremarkable except as noted in HPI and below Constitutional: Constitutional: Denies lethargy Eyes: Eyes: Denies blurry vision ENT: Reports Normal hearing present Cardiovascular: Cardiovascular: Denies chest pain and Denies palpitations Respiratory: Respiratory: Denies hemoptysis Gastrointestinal: Gastrointestinal: Denies abdominal pain Genitourinary: Genitourinary: Denies hematuria Musculoskeletal: Musculoskeletal: Denies back pain Integumentary/Breasts: Comments: Recent diagnosis breast cancer Neurologic: Reports Abnormal speech present Psychiatric: Psychiatric: Reports confusion Endocrine: Endocrine: Denies excessive sweating Hematologic/Lymphatic: Hematologic/Lymphatic: Denies easy bleeding Allergic/Immunologic: Allergic/Immunologic: Denies GI upset with certain foods PMFSH Past Medical History Medical History (Updated 11/12/24 @ 10:58 by Percy Britton MD) Hypertension Breast CA Family History Family History (Updated 11/12/24 @ 10:49 by Percy Britton MD) Father Acute myocardial infarction Social History Social History Smoking status: Never smoker Second hand tobacco smoke exposure: No Alcohol intake: current Drinks per week: 7 Substance use: never Do You Feel Safe in your Home?: Yes Lack of Transportation: No Lack of Food: Never True Current Housing: I Have Housing Concerned About Future Housing: No Difficulty Paying Gas/Electric Bills: No Difficulty Paying for Meds: No Currently Unemployed: No Education: High School Diploma/GED Difficulty w/ Childcare or Family Care: No Spiritual care concerns: No Meds Home Medications and Allergies Home Medications ?Medication ?Instructions ?Recorded ?Confirmed ?Type levothyroxine 100 mcg tablet 100 mcg PO DAILY 11/08/24 11/08/24 History metoprolol succinate 50 mg 50 mg PO DAILY 11/08/24 11/08/24 History tablet,extended release 24 hr olmesartan 5 mg tablet 5 mg PO DAILY 11/08/24 11/08/24 History triamterene 37.5 1 cap PO DAILY 11/08/24 11/08/24 History mg-hydrochlorothiazide 25 mg capsule venlafaxine 37.5 mg 37.5 mg PO DAILY 11/08/24 11/08/24 History capsule,extended release 24 hr vitamin E 268 mg (400 unit) capsule 268 mg PO DAILY 11/08/24 11/08/24 History Allergies Allergy/AdvReac Type Severity Reaction Status Date / Time Penicillins Allergy Intermediate Rash Verified 11/07/24 19:32 Vital Signs Vital Signs - 24 hr 11/11/24 14:00 11/11/24 20:00 11/11/24 20:00 Temperature 37.2 C Pulse Rate 68 68 78 Respiratory Rate 18 18 Blood Pressure 101/35 L Pulse Oximetry 96 96 Oxygen Delivery Room Air Oxygen Flow Rate Fraction of Inspired Oxygen 11/11/24 22:00 11/12/24 00:00 11/12/24 04:00 Temperature 37.0 C Pulse Rate 70 78 82 Respiratory Rate 16 Blood Pressure 130/49 L Pulse Oximetry 94 Oxygen Delivery Oxygen Flow Rate Fraction of Inspired Oxygen 11/12/24 06:00 11/12/24 06:32 11/12/24 06:35 Temperature 37.7 C H Pulse Rate 80 82 Respiratory Rate 48 H 28 H Blood Pressure 138/52 L Pulse Oximetry 93 93 Oxygen Delivery Room Air Oxygen Flow Rate Fraction of Inspired Oxygen 11/12/24 06:40 11/12/24 07:35 11/12/24 07:45 Temperature 36.2 C L Pulse Rate 85 172 H 180 H Respiratory Rate 28 H 48 H Blood Pressure 106/73 Pulse Oximetry 94 Oxygen Delivery Oxygen Flow Rate Fraction of Inspired Oxygen 11/12/24 08:12 11/12/24 08:19 11/12/24 08:20 Temperature Pulse Rate 162 H 155 H 180 H Respiratory Rate 43 H 48 H Blood Pressure 148/105 H 148/105 H 106/72 Pulse Oximetry 97 97 Oxygen Delivery Nasal Cannula Oxygen Flow Rate 5 Fraction of Inspired Oxygen 11/12/24 08:29 11/12/24 08:52 11/12/24 09:26 Temperature Pulse Rate 173 H 154 H 166 H Respiratory Rate 483 H Blood Pressure 133/93 H Pulse Oximetry 96 Oxygen Delivery Nasal Cannula Oxygen Flow Rate 5 Fraction of Inspired Oxygen Exam Narrative: Awake alert oriented appears stated age Const: General: comfortable HENMT: Face/Nose/Sinus: Normal nares present Mouth: Yes moist mucous membranes Eyes: Sclera: sclerae normal Neck: Neck: supple and no JVD Chest: Other: No reproducible chest wall pain to palpation Resp: Effort & Inspection: normal respiratory effort Auscultation: clear to auscultation bilaterally Cardio: Rate: tachycardic Rhythm: abnormal rhythm irregularly irregular Heart sounds: no murmurs GI: Inspection: non-distended GI Palp: Yes Soft to palpation Skin: General skin exam: normal color Neuro: Speech: No normal speech Extrem: General: normal to inspection Psych: Mental Status: mental status grossly abnormal Affect: No Hostile affect present Attitude: not belligerent Results Labs and Meds 11/12/24 06:14 11/12/24 06:14 Lab results: Cardiac Enzymes 11/12/24 Range/Units 06:14 AST 41 H (14-36) U/L CBC 11/12/24 Range/Units 06:14 WBC 6.2 (4.5-10.0) K/mm3 RBC 3.44 L (4.2-5.4) M/mm3 Hgb 11.1 L (12.0-15.0) g/dL Hct 31.1 L (37.0-47.0) % Plt Count 274 (150-375) k/mm3 Lymph # (Auto) 0.71 L (0.9-3.2) K/mm3 [place] # (Auto) 0.7 H (0.1-0.6) K/mm3 Eos # (Auto) 0.0 (0-0.3) K/mm3 Baso # (Auto) 0.0 (0.0-0.1) K/mm3 Comprehensive Metabolic Panel 12/29/24 Range/Units 06:14 Sodium 129 L (137-145) mmol/L Potassium 2.3 L* (3.4-5.0) mmol/L Chloride 97 L (98-107) mmol/L Carbon Dioxide 29 (22-30) mmol/L BUN 12 (7-17) mg/dL Creatinine 0.50 L (0.7-1.0) mg/dL Glucose 95 (65-110) mg/dL Calcium 7.8 L (8.4-10.2) mg/dL AST 41 H (14-36) U/L ALT 28 (6-35) U/L Alkaline Phosphatase 41 (38-126) U/L Total Protein 6.0 L (6.3-8.2) g/dL Albumin 3.5 (3.5-5.1) g/dL Intake and Output 11/11/24 11/12/24 11/12/24 23:59 07:59 15:59 Intake Total 670 240 3.3 Balance 670 240 3.3 Intake: IV 3.3 dilTIAZem 100 MG/100 ML 100 mg 3.3 In 100 ml @ 10 MG/HR 10 mls/hr IV CONT .Q[facility]H [facility] Rx#:[id number] Oral 670 240 Other: # Unmeasured Voids 2 EKG personally reviewed and independently interpreted showing atrial fibrillation with rapid ventricular response. Echocardiogram 2. Left ventricular systolic function is normal, estimated at 60-65%. 3. The left ventricular diastolic function is grade I diastolic dysfunction. 4. There is trace tricuspid valve regurgitation. 5. No pulmonary hypertension, estimated pulmonary arterial systolic pressure is 27 mmHg.
[2024-11-12] MEDS: DIGOXIN INJ 250 MCG/ML 2 ML AMP (*BKC) IV PUSH (11:09)
--- NOTE | 2024-11-12 11:40 | WPDCNINT ---
Assessment and Plan Assessment and plan (1) Atrial fibrillation with rapid ventricular response: Code(s): I48.91 - Unspecified atrial fibrillation Status: Acute Assessment and Plan: 11/12: Patient transferred to the ICU from the floor with Atrial fibrillation RVR with heart rates in the 150s to 190s. Patient was given metoprolol IV push, Cardizem IV push, started on a Cardizem infusion and increased to 20 mg/hr per Cardiology. Patient also received digoxin -potassium is being replaced aggressively -cardiology following closely -CTA chest to rule out PE has been ordered -CT brain without contrast has been ordered to rule out cerebral edema and or herniation as patient has increased urine output, possible DI -discussed with family, and 2 stepdaughters regarding her condition in detail, family does not want aggressive care at this time and want to make her comfortable since the do not want her to have residual issues from a stroke as that is not what her quality of life is and she would not want aggressive care. -comfort measures orders were entered in the chart (2) CVA (cerebral vascular accident): Code(s): I63.9 - Cerebral infarction, unspecified Status: Acute Assessment and Plan: Worsening mental status, atrial fibrillation RVR, could be related to emboli -patient unstable for CT scan at this time -family has made her comfort measures 11/09 MRI brain showed acute infarct in the left insular (3) Hyponatremia: Code(s): E87.1 - Hypo-osmolality and hyponatremia Status: Acute Assessment and Plan: Improving (4) Hypokalemia: Code(s): E87.6 - Hypokalemia Status: Acute Assessment and Plan: Aggressively replace potassium and magnesium since patient is in AFib RVR Plan DVT prophylaxis: SCD Stress ulcer prophylaxis: Not indicated Nutrition: NPO for now Code Status: DNR Critical Care Time Spent: 51 minutes Discussed with , 2 stepdaughters, updated them with patient's condition and plan of care. They do not want aggressive care at this time, they have already made do not resuscitate and do not intubate. The and the daughters requested that we make her comfort measures. -comfort measure orders were placed in the chart -Dr. Hanks and Dr Britton were notified. -Bedside RNRegina is aware and has been a part of the discussion Due to a high probability of clinically significant, life threatening deterioration, the patient required my highest level of preparedness to intervene emergently and I personally spent this critical care time directly and personally managing the patient. This critical care time included obtaining a history; examining the patient; pulse oximetry; ordering and review of studies; arranging urgent treatment with development of a management plan; evaluation of patient's response to treatment; frequent reassessment; and discussions with other providers. It was exclusive of separately billable procedures and treating other patients and teaching time. Please see Assessment and Plan section and the rest of the note for further information on patient assessment and treatment This dictation may have been done utilizing a voice recognition system. Attempts have been made to correct errors. However, there may be uncorrected grammatical, spelling, and recognitions errors present. Bottled Beverage Inspector Consult Note Consult date: 11/12/24 Reason for consult: Atrial fibrillation with rapid ventricular response, stroke HPI: Arleen Pettit is a 79 year old female with past medical history of hypertension, recent diagnosis of right breast cancer, history of thyroid cancer status post resection presented the ED on 11/07/2024 with complains of altered mental status. According the records patient became acutely confused while making a salad at home on [address], she would not answer questions and would stare off and then became confused. This lasted intermittently for about 15 minutes. Patient did not recent return to her baseline mental status and was brought to the ED. She was complaining of lightheadedness, nausea. In the ER her sodium was 121, patient has been on diuretics at home. TSH was within normal limits, UA was unremarkable, lactic acid of 0.7 CT brain on admission showed no acute intracranial hemorrhage or suspicious mass effect, especially opacification of posterior most bilateral mastoid air cells and air-fluid levels. CTA head and neck renal stenosis, no aneurysm or intracranial occlusion. MRI documented acute infarct in the left insula. Chest x-ray on admission did not show any focal infiltrates we. EKG showed sinus rhythm with normal rate, normal DE interval, no ischemic changes, troponin undetectable Echocardiogram: Showed normal LV systolic function with EF of 60-65%, grade 1 diastolic dysfunction, no pulmonary hypertension 11/12/2024: Patient was transferred to the ICU as intermediate Unit patient. Patient was transferred for AFib RVR with heart rates in the 140s to 180s. Patient was given IV Cardizem push and started on Cardizem infusion, patient also received IV metoprolol and IV digoxin 250 mcg IV x1 per Cardiology. Patient remains in AFib RVR with elevated heart rates. I was asked to evaluate the patient. Patient seen and examined in the ICU, is awake with her eyes open, is mute, was able to squeeze my fingers on the left side, but did not wiggle her toes. Unable to not to questions. Patient's potassium is 2.3, sodium of 129, lactic acid 0.9, creatinine 0.50, CO2 29. Magnesium was 1.9. Patient was given KCL 40 mEq IVPB x1 and magnesium sulfate 2 g IVPB x1. Stepdaughter at bedside and was able to answer most of the questions, patient is been very active through through her life, does Pilates, is very sharp uses her new phone. She did have a history of thyroid cancer which was removed, she was recently diagnosed with breast cancer. Blood pressures have been stable, urine output has been adequate, patient is febrile with a T-max of 103.7 Review of Systems Review of Systems: ROS unobtainable: Yes unobtainable due to medical condition and unobtainable due to mental status PMFSH Past Medical History Medical History (Updated 11/12/24 @ 10:58 by Percy Britton MD) Hypertension Breast CA Family History Family History (Updated 11/12/24 @ 10:49 by Percy Britton MD) Father Acute myocardial infarction Social History Social History Smoking status: Never smoker Second hand tobacco smoke exposure: No Alcohol intake: current Drinks per week: 7 Substance use: never Do You Feel Safe in your Home?: Yes Lack of Transportation: No Lack of Food: Never True Current Housing: I Have Housing Concerned About Future Housing: No Difficulty Paying Gas/Electric Bills: No Difficulty Paying for Meds: No Currently Unemployed: No Education: High School Diploma/GED Difficulty w/ Childcare or Family Care: No Spiritual care concerns: No Meds Home Medications and Allergies Home Medications ?Medication ?Instructions ?Recorded ?Confirmed ?Type levothyroxine 100 mcg tablet 100 mcg PO DAILY 11/08/24 11/08/24 History metoprolol succinate 50 mg 50 mg PO DAILY 11/08/24 11/08/24 History tablet,extended release 24 hr olmesartan 5 mg tablet 5 mg PO DAILY 11/08/24 11/08/24 History triamterene 37.5 1 cap PO DAILY 11/08/24 11/08/24 History mg-hydrochlorothiazide 25 mg capsule venlafaxine 37.5 mg 37.5 mg PO DAILY 11/08/24 11/08/24 History capsule,extended release 24 hr vitamin E 268 mg (400 unit) capsule 268 mg PO DAILY 11/08/24 11/08/24 History Allergies Allergy/AdvReac Type Severity Reaction Status Date / Time Penicillins Allergy Intermediate Rash Verified 11/07/24 19:32 Vital Signs Vital Signs - 24 hr 11/11/24 14:00 11/11/24 20:00 11/11/24 20:00 Temperature 98.9 F Pulse Rate 68 68 78 Respiratory Rate 18 18 Blood Pressure 101/35 L Pulse Oximetry 96 96 Oxygen Delivery Room Air Oxygen Flow Rate Fraction of Inspired Oxygen 21 11/11/24 22:00 11/12/24 00:00 11/12/24 04:00 Temperature 98.6 F Pulse Rate 70 78 82 Respiratory Rate 16 Blood Pressure 130/49 L Pulse Oximetry 94 Oxygen Delivery Oxygen Flow Rate Fraction of Inspired Oxygen 11/12/24 06:00 11/12/24 06:32 11/12/24 06:35 Temperature 99.9 F H Pulse Rate 80 82 Respiratory Rate 48 H 28 H Blood Pressure 138/52 L Pulse Oximetry 93 93 Oxygen Delivery Room Air Oxygen Flow Rate Fraction of Inspired Oxygen 11/12/24 06:40 11/12/24 07:35 11/12/24 07:45 Temperature 97.1 F L Pulse Rate 85 172 H 180 H Respiratory Rate 28 H 48 H Blood Pressure 106/73 Pulse Oximetry 94 Oxygen Delivery Oxygen Flow Rate Fraction of Inspired Oxygen 11/12/24 08:12 11/12/24 08:19 11/12/24 08:20 Temperature Pulse Rate 162 H 155 H 180 H Respiratory Rate 43 H 48 H Blood Pressure 148/105 H 148/105 H 106/72 Pulse Oximetry 97 97 Oxygen Delivery Nasal Cannula Oxygen Flow Rate 5 Fraction of Inspired Oxygen 11/12/24 08:29 11/12/24 08:52 11/12/24 09:26 Temperature Pulse Rate 173 H 154 H 166 H Respiratory Rate 483 H Blood Pressure 133/93 H Pulse Oximetry 96 Oxygen Delivery Nasal Cannula Oxygen Flow Rate 5 Fraction of Inspired Oxygen 11/12/24 10:00 11/12/24 10:00 11/12/24 10:00 Temperature Pulse Rate 173 H 173 H 173 H Respiratory Rate 35 H Blood Pressure 124/99 H 124/99 H Pulse Oximetry 97 Oxygen Delivery Oxygen Flow Rate Fraction of Inspired Oxygen 11/12/24 11:03 11/12/24 11:09 Temperature Pulse Rate 160 H 161 H Respiratory Rate Blood Pressure 120/90 Pulse Oximetry Oxygen Delivery Oxygen Flow Rate Fraction of Inspired Oxygen Exam Narrative: General: Elderly female currently no acute distress HEENT:? Right pupil larger than the left, sclera skin Neck:? Neck is supple, no neck stiffness Respiratory:? Shallow breaths and tachypnea. Clear to auscultation clear to auscultation bilaterally, decreased air entry at bases, no wheezing Cardiac:? Irregularly irregular, tachycardic Abdomen:? Soft, nontender, nondistended, hypoactive bowel sound Extremities:? No edema bilateral lower extremity pedal pulses Neuro:? Patient is awake, opens her eyes, squeezes with her left hand, does not squeeze with her right hand which is contracted and posturing. Does not follow simple commands and her lower extremity. Patient is mute Skin:? Warm and dry Psych:? Unable to assess Results Labs 11/12/24 06:14 11/12/24 06:14 Labs: Short CBC 11/12/24 Range/Units 06:14 WBC 6.2 (4.5-10.0) K/mm3 Hgb 11.1 L (12.0-15.0) g/dL Hct 31.1 L (37.0-47.0) % Plt Count 274 (150-375) k/mm3 [facility] 11/12/24 06:14 Sodium 129 L Potassium 2.3 L* Chloride 97 L Carbon Dioxide 29 BUN 12 Creatinine 0.50 L Glucose 95 Calcium 7.8 L Liver Function 11/12/24 Range/Units 06:14 Total Bilirubin 0.5 (0.2-1.3) mg/dL AST 41 H (14-36) U/L ALT 28 (6-35) U/L Alkaline Phosphatase 41 (38-126) U/L Albumin 3.5 (3.5-5.1) g/dL Quality VTE Prophylaxis VTE prophylaxis: mechanical ordered Hospitalist MIPS Advance Care Plan I have confirmed that the patient's Advanced Care Plan is present, code status is documented, or surrogate decision maker is listed in patient medical record.: Yes Medication Reconciliation I have utilized all available resources to obtain, update and review the patients current medications (includes all prescriptions, OTC, herbals, cannabis, and nutritional supplements).: Yes
[2024-11-12] MEDS: ACETAMINOPHEN 650 MG SUPPOSITORY RECTAL (12:05)
--- NOTE | 2024-11-12 12:11 | P.PNIM_ITS ---
Progress Note: A&P Assessment and Plan (1) Postural dizziness with near syncope: Code(s): R42 - Dizziness and giddiness; R55 - Syncope and collapse Status: Acute Assessment and Plan: Likely from Hyponatremia r/o stroke MRI and ECHO pending patient alert and oriented x 3 this morning Neurology consulted (2) Observed seizure-like activity: Code(s): R56.9 - Unspecified convulsions Status: Acute Assessment and Plan: ?from Hyponatremia continue above workup and neurology consulted (3) Hyponatremia: Code(s): E87.1 - Hypo-osmolality and hyponatremia Status: Acute Assessment and Plan: Triamterene and hydrochlorothiazide on hold (4) Breast CA: Code(s): C50.919 - Malignant neoplasm of unspecified site of unspecified female breast Status: Acute Assessment and Plan: Follow-up in outpatient setting Plan Afib w RVR EKG showed Afib RVR CXR negative Likely cause of stroke Prior ECHo showed normal EF Continue Cardizem and heparin infusion Cardiology eval noted Acute stroke MRI showed acute stroke in the left lingula ECHO showed normal EF with grade I diastolic dysfunction Lipid panel and A1c pending CTA head and neck ordered PT/OT/ST Aspirin, Plavix and Lipitor neurology following AMS, ?Dementia improving neurology evaluated and reckons patient has Dementia EEG normal, however neurology recommended Keppra Continue Keppra, Seroquel at nighttime Neurology following B12 and TSH ordered Hyponatremia, resolving Na 131 today, Po intake improving Continue holding Triamterene and HCTZ Breast Ca Patient's care domiciled at [facility] continue outpatient follow up over there Hypothyroidism continue home Levothyroxine Hypertension Titrate home meds with clinical course Insomnia Now on nighttime seroquel 25mg PO monitor DVT prophylaxis on Heparin infusion Subjective Date/time seen: 11/12/24 12:11 Interval history: Rapid response was called this morning for Tachycardia EKG showed Afib with RVR eventually transfer to ICU for close monitoring Patient requiring supplemental oxygen Cardiology consulted Review of Systems Review of Systems: Patient has no recollection of events however states that has a headache, has been having hot flashes and profuse diaphoresis, has not been able to sleep in several days Exam Narrative: Patient laying in a stretcher Const: General: comfortable, no acute distress, well developed, alert, awake and average body habitus Nutritional Appearance: average body habitus Sebastián entation/consciousness: patient oriented x3 HENMT: Head: normal to inspection, normocephalic and atraumatic Ears: hearing grossly normal bilaterally Face/Nose/Sinus: normal facial exam Face and sinus: normal facial exam Eyes: General: appearance normal, both eyes and all related structures Pupils: Equal, round and reactive pupils present EOM: EOMs intact bilaterally Neck: Neck: full ROM, no lymphadenopathy and no JVD Thyroid: thyroid normal Lymphatic: no lymphadenopathy noted Resp: Effort & Inspection: normal respiratory effort and able to speak in complete sentences Auscultation: clear to auscultation bilaterally Cardio: Jugular venous distension: no JVD Rate: regular rate Rhythm: regular rhythm Heart sounds: S1 normal heart sound present and S2 normal heart sound present : General: Yes deferred Skin: Rashes: no rashes Wounds: no wounds Neuro: General: patient oriented x3, CN's II-XI intact bilaterally and Unable to assess gait Cranial nerves: Yes CN's II-XII intact bilaterally and Yes E qual, round and reactive pupils present Cognition (Neuro): normal cognition Speech: normal speech Gait exam (Neuro): Unable to assess gait Motor exam (neuro): 5/5 motor strength present throughout Extrem: General: normal to inspection, full ROM, no joint enlargement and no pedal edema Objective Data Vital Signs Vital Signs: Vital Signs - 24 hr 11/11/24 14:00 11/11/24 20:00 11/11/24 20:00 Temperature 98.9 F Pulse Rate 68 68 78 Respiratory Rate 18 18 Blood Pressure 101/35 L Pulse Oximetry 96 96 Oxygen Delivery Room Air Oxygen Flow Rate Fraction of Inspired Oxygen 21 11/11/24 22:00 11/12/24 00:00 11/12/24 04:00 Temperature 98.6 F Pulse Rate 70 78 82 Respiratory Rate 16 Blood Pressure 130/49 L Pulse Oximetry 94 Oxygen Delivery Oxygen Flow Rate Fraction of Inspired Oxygen 11/12/24 06:00 11/12/24 06:32 11/12/24 06:35 Temperature 99.9 F H Pulse Rate 80 82 Respiratory Rate 48 H 28 H Blood Pressure 138/52 L Pulse Oximetry 93 93 Oxygen Delivery Room Air Oxygen Flow Rate Fraction of Inspired Oxygen 11/12/24 06:40 11/12/24 07:35 11/12/24 07:45 Temperature 97.1 F L Pulse Rate 85 172 H 180 H Respiratory Rate 28 H 48 H Blood Pressure 106/73 Pulse Oximetry 94 Oxygen Delivery Oxygen Flow Rate Fraction of Inspired Oxygen 11/12/24 08:12 11/12/24 08:19 11/12/24 08:20 Temperature Pulse Rate 162 H 155 H 180 H Respiratory Rate 43 H 48 H Blood Pressure 148/105 H 148/105 H 106/72 Pulse Oximetry 97 97 Oxygen Delivery Nasal Cannula Oxygen Flow Rate 5 Fraction of Inspired Oxygen 11/12/24 08:29 11/12/24 08:52 11/12/24 09:26 Temperature Pulse Rate 173 H 154 H 166 H Respiratory Rate 483 H Blood Pressure 133/93 H Pulse Oximetry 96 Oxygen Delivery Nasal Cannula Oxygen Flow Rate 5 Fraction of Inspired Oxygen 11/12/24 10:00 11/12/24 10:00 11/12/24 10:00 Temperature Pulse Rate 173 H 173 H 173 H Respiratory Rate 35 H Blood Pressure 124/99 H 124/99 H Pulse Oximetry 97 Oxygen Delivery Oxygen Flow Rate Fraction of Inspired Oxygen 11/12/24 11:03 11/12/24 11:09 11/12/24 12:00 Temperature Pulse Rate 160 H 161 H 151 H Respiratory Rate 35 H Blood Pressure 120/90 Pulse Oximetry 96 Oxygen Delivery Nasal Cannula Oxygen Flow Rate 5 Fraction of Inspired Oxygen 11/12/24 12:05 Temperature 103.7 F H Pulse Rate Respiratory Rate Blood Pressure Pulse Oximetry Oxygen Delivery Oxygen Flow Rate Fraction of Inspired Oxygen Intake/Output Intake/Output: Intake & Output 11/09/24 11/10/24 11/11/24 11/12/24 23:59 23:59 23:59 23:59 Intake Total 800 2968.7 1150 265.1 Balance 800 2968.7 1150 265.1 Meds/Results Medications: Active Medications Generic Name Dose Route Start Last Admin Trade Name Freq PRN Reason Stop Dose Admin Acetaminophen 650 mg 11/12/24 11:47 11/12/24 12:05 Acetaminophen 650 Mg Suppository RECTAL 650 mg Q6H PRN Administration Mild Pain (1-3) or Fever Atorvastatin Calcium 20 mg 11/10/24 09:00 11/12/24 08:58 Atorvastatin 20 Mg Tablet PO 20 mg DAILY JESSICA Administration Heparin Sodium (Porcine) 5,000 units 11/12/24 11:28 Heparin Sodium 5,000 Units/Ml Vial IV PUSH PRN PRN aPTT less than 55 seconds Heparin Sodium (Porcine) 2,500 units 11/12/24 11:28 Heparin Sodium 5,000 Units/Ml Vial IV PUSH PRN PRN aPTT 55 - 70 seconds Diltiazem HCl 100 mg in 100 mls @ 20 mls/hr 11/12/24 08:00 11/12/24 11:03 Cardizem 100 Mg/100 Ml IV CONT 20 mg/hr .Q5H JESSICA 20 mls/hr Infusion 20 MG/HR Potassium Chloride 40 meq/ 520 mls @ 130 mls/hr 11/12/24 08:53 11/12/24 09:26 Sodium Chloride IVPB 11/12/24 12:52 130 mls/hr ONCE ONE Administration Levetiracetam 500 mg in 100 mls @ 400 mls/hr 11/12/24 21:00 Keppra Iv IVPB Q12HR [facility] Heparin Sodium/Dextrose 25,000 units in 250 mls @ 11 mls/hr 11/12/24 11:30 Heparin Sodium/D5w 100 Units/Ml IV CONT .[id number] [facility] Protocol 1,100 UNITS/HR Levothyroxine Sodium 50 mcg 11/13/24 06:30 Levothyroxine Sodium Inj 100 Mcg/5 Ml Vial IV PUSH DAILY@0630 [facility] Ondansetron HCl 4 mg 11/09/24 18:04 11/10/24 16:25 Ondansetron Inj 4 Mg/2 Ml Vial IV PUSH 4 mg Q4H PRN Administration Nausea And Vomiting Sodium Chloride 10 ml 11/12/24 14:00 Central Line Flush IV PUSH Q8HR [facility] Sodium Chloride 20 ml 11/12/24 12:09 Central Line Flush IV PUSH PRN PRN after blood draws Radiology Results: ITS Impressions Head CT 11/07/24 20:13 Impression: No acute intracranial hemorrhage or suspicious mass effect. Partial opacification of the posterior most bilateral mastoid air cells with air-fluid levels. Brain MRI 11/09/24 11:29 IMPRESSION: 1. 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 Head/Neck CTA 11/09/24 16:22 IMPRESSION: 1. Normal CTA neck. Percent stenosis per NASCET criteria is 0%. 2. No intracranial occlusion or significant stenosis seen. Carotid Doppler Study 11/10/24 09:27 IMPRESSION: 1. <50% stenosis from minimal plaque in the right internal carotid artery. 2. <50% stenosis from minimal plaque in the left internal carotid artery. Chest X-Ray 11/12/24 08:46 IMPRESSION: 1. No acute cardiopulmonary disease. Labs Labs: Laboratory Results - last 24 hr 11/12/24 11/12/24 11/12/24 06:14 07:27 07:32 WBC 6.2 RBC 3.44 L Hgb 11.1 L Hct 31.1 L MCV 90.4 MCH 32.3 MCHC 35.7 RDW 12.1 Plt Count 274 MPV 9.1 Immature Gran % (Auto) 1.5 H Neut % (Auto) 76.1 H Lymph % (Auto) 11.5 L [place] % (Auto) 10.6 H Eos % (Auto) 0.0 Baso % (Auto) 0.3 Lymph # (Auto) 0.71 L [place] # (Auto) 0.7 H Eos # (Auto) 0.0 Baso # (Auto) 0.0 Abs Immat Gran (auto) 0.09 H Absolute Neuts (auto) 4.7 Absolute Nucleated RBC 0.000 Nucleated RBC % 0.0 Puncture Site ABG pH ABG pCO2 ABG pO2 ABG PO2/FiO2 Ratio ABG HCO3 ABG O2 Saturation ABG O2 Content ABG Base Excess A-a Gradient Oxyhemoglobin Carboxyhemoglobin Methemoglobin Reduced Hemoglobin Total Hemoglobin O2 Delivery Device O2 Liters/Min FiO2 Sodium 129 L Potassium 2.3 L* Chloride 97 L Carbon Dioxide 29 Anion Gap 3 L BUN 12 Creatinine 0.50 L Estim Creat Clear Calc 70 Estimated GFR > 60 Glucose 95 POC Capillary Glucose 100 Lactic Acid 0.9 Calcium 7.8 L Magnesium 1.7 Total Bilirubin 0.5 AST 41 H ALT 28 Alkaline Phosphatase 41 Total Protein 6.0 L Albumin 3.5 Vitamin B12 > 1000.0 H Folate 9.4 TSH (Reflex) 0.709 11/12/24 07:52 WBC RBC Hgb Hct MCV MCH MCHC RDW Plt Count MPV Immature Gran % (Auto) Neut % (Auto) Lymph % (Auto) [place] % (Auto) Eos % (Auto) Baso % (Auto) Lymph # (Auto) [place] # (Auto) Eos # (Auto) Baso # (Auto) Abs Immat Gran (auto) Absolute Neuts (auto) Absolute Nucleated RBC Nucleated RBC % Puncture Site Left radial ABG pH 7.560 H* ABG pCO2 29.8 L ABG pO2 89.5 ABG PO2/FiO2 Ratio 2.24 ABG HCO3 26.1 H ABG O2 Saturation 97.8 ABG O2 Content 16.7 ABG Base Excess 4.4 A-a Gradient 161.4 Oxyhemoglobin 97.0 Carboxyhemoglobin 0.4 Methemoglobin 0.3 Reduced Hemoglobin 2.3 Total Hemoglobin 12.2 O2 Delivery Device Nasal cannula O2 Liters/Min 5.0 FiO2 40 Sodium Potassium Chloride Carbon Dioxide Anion Gap BUN Creatinine Estim Creat Clear Calc Estimated GFR Glucose POC Capillary Glucose Lactic Acid Calcium Magnesium Total Bilirubin AST ALT Alkaline Phosphatase Total Protein Albumin Vitamin B12 Folate TSH (Reflex)
[2024-11-12] MEDS: HEPARIN SOD/D5W 100 UNITS/ML 25,000 UNITS/250 ML BAG 11 UNITS IV CONT (12:20)
[2024-11-12 12:21] LABS: Basophils Percent Auto 0.5 % (0.2-1.2); Hematocrit 32.6 % (37.0-47.0); Hemoglobin 11.8 g/dL (12.0-15.0); Immature Granulocyte Absolute 0.11 K/mm3 (0.00-0.031); Immature Granulocyte Percent A 1.3 % (0-0.5); Lymphocytes Absolute Auto 0.73 K/mm3 (0.9-3.2); Lymphocytes Percent Auto 8.5 % (18.3-44.2); Mean Corpuscular HGB Conc 36.2 g/dl (32-36); Mean Corpuscular Hemoglobin 32.1 pg (26-34); Mean Corpuscular Volume 88.6 fl (80-100); Mean Platelet Volume 8.8 fl (7.4-10.4); Monocytes Absolute Auto 0.9 K/mm3 (0.1-0.6); Monocytes Percent Auto 10.8 % (2.6-8.5); Neutrophils Absolute Auto 6.8 K/mm3 (1.3-6.7); Neutrophils Percent Auto 78.9 % (45.5-73.1); Platelet Count Result 257 k/mm3 (150-375); Red Blood Count 3.68 M/mm3 (4.2-5.4); Red Cell Distribution Width 12.1 % (11.5-14.5); White Blood Count 8.6 K/mm3 (4.5-10.0)
--- NOTE | 2024-11-12 12:27 | PCOTNOTE ---
Per RN, pt is not appropriate at this time for OT treatment. Pt recently had central line placed prior. Will continue per poc duration/frequency when appropriate.
[2024-11-12 12:34] LABS: INR 1.1; Partial Thromboplastin Time 23.7 Seconds (22.3-36.8); Prothrombin Time 14.6 Seconds (11.1-14.7)
[2024-11-12] MEDS: MORPHINE SULFATE INJ (*CRX) 10 MG/ML AMP 5 MG IV PUSH (13:09)
[2024-11-12] MEDS: LORazepam INJ (*CRX) 2 MG/ML VIAL IV PUSH ×6 (13:10→23:05)
--- NOTE | 2024-11-12 13:13 | P.PCNBED_ITS ---
Procedures Central Line Placement Right Femoral: Central Line Date: 11/12/24 Central Line Time: 11:00 The patient/family/POA understand(s) and acknowledge(s) the need to proceed with central venous catheter insertion as an important element of the patient's clinical management.: Yes Consent: I have discussed with the patient and/or surrogate, the non-emergent placement of a central venous catheter, including its clinical necessity/indication and associated potential risks and complications. The patient and/or surrogate understand(s) and acknowledge(s) the need to proceed with central venous catheter insertion as an important element of the patient's clinical management. Time Out Performed: Yes Patient Position: supine Patient placed on monitor/pulse ox: Yes Provider Prep: mask, sterile gown, sterile gloves, Max. sterile barrier precautions and hand hygiene with conventional soap/water or alcohol based hand rub Central line prep: 2% Chlorhexidine scrub Local anesthesia used: lidocaine 1% Amount of anesthesia used (ml): 3 Sterile US Technique with sterile gel/sterile probe covers: Yes Central line lumen inserted: triple Kinyarwanda: 12 Length (cm): 20 Depth of Insertion (cm): 20 Post Procedure: sutured in place, good blood return, all ports aspirated, flushed, capped, transparent dressing, hemostatic product, antimicrobial product, securement product and aseptic technique maintained throughout procedure Post procedure x-ray: other (Not indicated) Patient tolerated procedure: well Complications: none
[2024-11-12] MEDS: MORPHINE SULFATE (*CRX) 2 MG/ML INJ IV PUSH ×10 (14:06→21:51)
--- NOTE | 2024-11-12 21:56 | PC.NURSE ---
This patient, Arleen Pettit, was transferred to Room 219 on 11/12/24 at 2156. Personal belongings sent with patient via family. Report given to GUILHERME Ovalle. Appropriate documentation sent with patient.
[2024-11-12] MEDS: MORPHINE SULFATE INJ (*CRX) 10 MG/ML AMP 6 MG IV PUSH ×2 (23:06→23:42)
--- NOTE | 2024-11-13 17:45 | PM.DDS ---
Discharge Summary Date and Time Date of : 11/13/24 Time of : 00:29 Provider Pronounced By: 2 RNs Name of First RN That Pronounced: February Name of Second RN That Pronounced: Lg Kohliese Probable Cause of Probable Cause of : Atrial fibrillation with rapid ventricular response Stroke Summary Hospital Course: This is a 79-year-old female with past medical history significant for hypertension, recently diagnosed breast CA, hypothyroidism, depression. Patient was brought to the emergency room after having episode of altered consciousness with the patient became unresponsive and was noticed to have lip smacking and bilateral upper extremity nonpurposeful finger movement. Patient did not have incontinence, was recently diagnosed with breast CA and had been on estrogen replacement therapy which was stopped has had hot flashes with profuse sweating and insomnia for several days. Patient was found to be mildly orthostatic and felt dizzy upon standing. Preliminary workup was significant for sodium [address] of the head showed no acute hemorrhage. Patient has been placed in observation for further evaluation management and treatment Patient was managed for Hyponatremia with IVF and resolved. However, MRI brain retuned positive for Acute stroke, patient was placed on ASpirin, Plavix and statin. ECHO was unremarkable. EEG was done, neurology evaluated and recommended starting Keppra. Patient also had delirium which improved once she started sleeping well at night with Seroquel. Plan was for her to discharge to rehab. However, yesterday she went into Afib with RVR with HR in joseph 170 and 180s was promptly transferred to ICU and cardiology was consulted. Patient was less responsive in the ICU. family were present at bedside and they noted that patient lives an active and mentally active and they did not want to see her suffer. They decided to transition her to comfort care. Patient was transitioned to comfort care per family's wishes and at 0029 she passed. Additional Data Confirmation of as documented by pronouncing clinician: Pupillary Reflex, Palpable Pulses, Response to Stimuli, Heart Tones and Breath Sounds Name of Provider Notified: Princess Lund Time Provider Notified: 00:35 Provider Requests Autopsy: No Family Requests Autopsy: No Catalog Librarian Notified: Yes Date [facility] Notified of : 11/13/24 Time [facility] Notified of : 01:05
== END 2024-11-13 00:29 | disposition expired | DRG 65 ==
LOC: ANHED 23:23 → ANH3MEDSUR 11-08 00:35 → ANHICU 11-14 14:43
PROVIDERS: Internal Medicine; Admitting Provider Internal Medicine; Emergency Provider Physician Assistant; Visit Provider Internal Medicine
DX: I63.9 Cerebral infarction, unspecified (principal); E87.1 Hypo-osmolality and hyponatremia; C50.911 Malignant neoplasm of unspecified site of right female breast; E03.9 Hypothyroidism, unspecified; E87.6 Hypokalemia; F32.A Depression, unspecified; I48.91 Unspecified atrial fibrillation; I95.1 Orthostatic hypotension; I10 Essential (primary) hypertension; Z88.0 Allergy status to penicillin; Z66 Do not resuscitate; Z85.850 Personal history of malignant neoplasm of thyroid
CPT/HCPCS: 36415; 36600; 70450; 70496; 70498; 70553; 71045; 80048; 80053; 80061; 81003; 82375; 82550; 82607; 82746; 82805; 82948; 83036; 83050; 83605; 83735; 83880; 83930; 83935; 84300; 84443; 84484; 85018; 85025; 85610; 85730; 87040; 87086; 93005; 93306; 93880; 94640; 95816; 96361; 96374; 96375; 97161; 97165; 97530; 97535; 99285; A9270; A9577; C1751; G0378; J1160; J1200; J1644; J1650; J1940; J2060; J2270; J2405; J2765; J3475; J3480; J7030; J7040; Q9967